=== PATIENT | male | born 1975 | race Two or more races ===

== ENCOUNTER 2016-08-02 23:23 | Emergency (ER) | payer MEDICAID, OTHER ==
[~2016-08-02] VITALS: Ht 160 cm; Wt 83.9 kg
[~2016-08-02 23:23] MED LIST: ATIVAN0.5 MG ORAL; IBUPROFEN600 MG ORAL; NAPROSYN500 M1 ORAL; NKM
[2016-08-02 23:40] VITALS: BP 145/83
[2016-08-03] MEDS ORDERED: Norco 5mg/325mg tab ORAL ONE
[2016-08-03] MEDS ORDERED: IBUPROFEN600 MG ORAL (00:37)
[2016-08-03] MEDS ORDERED: HYDROCODON-ACE1 EA15 ORAL (00:37)
--- NOTE | 2016-08-03 00:37 | Emergency Room Report ---
History of Present Illness General Chief Complaint: Lower Extremity Injury Source: Patient Present Illness HPI Is a 40-year-old male with no significant past medical history. He presents with chief complaint of left ankle pain. Was walking with his family when he stepped into a hole. He twists his ankle. Complaining of swelling to the area. Pain is 10 out of 10. Worse with bearing weight. This occurred 40 minutes prior to arrival. No head injury. Did not pass out. Allergies: Coded Allergies: No Known Allergies (Unverified , 09/17/13) Patient History Past Medical History: see triage record, old chart reviewed Past Surgical History: none Pertinent Family History: none Social History: Denies: smoking Immunizations: other Reviewed Nursing Documentation: PMH: Agreed, PSxH: Agreed Nursing Documentation-PMH Hx Cardiac Problems: Yes - hyperlipidimia Review of Systems Eye: Denies: blurred vision, eye pain ENT: Denies: ear pain, nose congestion, throat swelling Respiratory: Denies: cough, shortness of breath Cardiovascular: Denies: chest pain, palpitations Gastrointestinal: Denies: abdominal pain, diarrhea, nausea, vomiting Musculoskeletal: Reports: joint pain, joint swelling, Denies: back pain Skin: Denies: rash Neurological: Denies: headache, numbness Endocrine: Denies: increased thirst, increased urine Hematologic/Lymphatic: Denies: easy bruising All Other Systems: negative except mentioned in HPI Physical Exam Vital Signs Date Time Temp Pulse Resp B/P Pulse Ox O2 Delivery O2 Flow Rate FiO2 08/02/16 23:35 98.1 82 16 150/85 99 Room Air vitals with htn Sp02 EP Interpretation: reviewed, normal General Appearance: well appearing, no apparent distress, alert Head: normocephalic, atraumatic Eyes: bilateral eye EOMI, bilateral eye PERRL ENT: hearing grossly normal, normal pharynx Neck: full range of motion, supple, no meningismus Respiratory: chest non-tender, lungs clear, normal breath sounds Cardiovascular #1: regular rate, rhythm, no murmur Gastrointestinal: normal bowel sounds, non tender, no mass, no organomegaly, no bruit, non-distended Musculoskeletal: back normal, normal range of motion, other - left ankle with edema over lateral malleolus. no pain at base of 5th MT. NVI. ankle stable. Psychiatric: mood/affect normal Skin: warm/dry Procedures Splinting Splinting : Consent: Verbal Hand-Made Type: plaster Splint: poserior short Pre-Proc Neuro Vasc Exam: normal Post-Proc Neuro Vasc Exam: normal Patient Tolerated: Well Complications: None Medical Decision Making Diagnostic Impression: Primary Impression: Ankle sprain Qualified Codes: S93.412A - Sprain of calcaneofibular ligament of left ankle, initial encounter ER Course Patient present with ankle sprain. No fracture or dislocation. We'll discharge home. Other X-Ray Diagnostic Results Other X-Ray Diagnostic Results : X-Ray Ordered: xr left ankle Date: August 03, 2016 Time: 00:36 EP Interpretation: Yes Findings: no fractures, no dislocation, other - STS Number of Views: 3 Last Vital Signs Date Time Temp Pulse Resp B/P Pulse Ox O2 Delivery O2 Flow Rate FiO2 08/02/16 23:40 98.1 82 17 145/83 100 Room Air Status: improved Disposition: HOME, SELF-CARE Condition: Stable Scripts Ibuprofen* (MOTRIN*) 600 Mg Tablet 600 MG ORAL THREE TIMES A DAY, #30 TAB 0 Refills Prov: JESSEE SIMON M.D. 08/03/16 Hydrocodone/Acetaminophen 5-325* (HYDROCODONE/ACETAMINOPHEN 5-325*) 1 Each Tablet 1 TAB ORAL Q6H Y for For Pain, #15 TAB 0 Refills Prov: JESSEE SIMON M.D. 08/03/16 Patient Instructions: Ankle Sprain Additional Instructions: Follow up with your doctor in 7 days. Return if worse. JESSEE SIMON M.D. August 03, 2016 00:37
[2016-08-03 00:50] VITALS: BP 138/82
--- NOTE | 2016-08-04 08:34 | Diagnostic Imaging Report ---
Indications: Fall, left ankle injury and pain Technique: 3 views left ankle. Findings: Comparison: None Anterolateral soft tissues are swollen. No fracture, dislocation, joint space widening , medial soft tissue swelling, foreign body/gas, or other acute changes are identified. IMPRESSION: Consider ATFL sprain Otherwise no evidence of acute injury.
== END 2016-08-03 00:50 | disposition home or self-care (01) ==
LOC: EMR 08-03 00:22
DX: S93.492A Sprain of other ligament of left ankle, initial encounter (principal); X50.1XXA Overexertion from prolonged static or awkward postures, initial encounter; Y92.89 Other specified places as the place of occurrence of the external cause; E78.5 Hyperlipidemia, unspecified
CPT/HCPCS: 29515; 99284

== ENCOUNTER 2016-10-21 23:22 | Emergency (ER) | payer OTHER ==
[~2016-10-21] VITALS: Ht 160 cm; Wt 79.4 kg
[~2016-10-21 23:22] MED LIST changes: +HYDROCODON-ACE1 EA15 ORAL
[2016-10-21] MEDS ORDERED: NKM (23:34)
[2016-10-21 23:40] VITALS: BP 145/78
[2016-10-21 23:59] LABS: APPEARANCE,URINE CLEAR; KETONES,URINE NEGATIVE (NEGATIVE); LEUKOCYTE ESTERASE ,URINE NEGATIVE (NEGATIVE); NITRITE,URINE NEGATIVE (NEGATIVE); PH,URINE 7 (4.5-8.0); PROTEIN,URINE NEGATIVE (NEGATIVE); UROBILINOGEN,URINE NORMAL MG/DL (0.0-1.0)
[2016-10-22] MEDS ORDERED: Lidocaine 2% Visc 15ml soln ORAL ONE
[2016-10-22] MEDS ORDERED: Pantoprazole Inj IV ONE
[2016-10-22] MEDS ORDERED: Mylanta II UD 30ml ORAL ONE
[2016-10-22] MEDS ORDERED: Morphine Sulfate 4mg/ml Inj IVP ONE
[2016-10-22 00:25] LABS: BASOPHILS % (AUTO) 1.1 % (0.0-2.0); EOSINOPHILS % (AUTO) 3.9 % (0.0-3.0); LYMPHOCYTES % (AUTO) 42.4 % (20.0-45.0); MEAN CORPUSCULAR HEMOGLOBIN 31.3 PG (27.0-31.0); MEAN CORPUSCULAR HGB CONC 34.6 G/DL (32.0-36.0); MEAN CORPUSCULAR VOLUME 90 FL (80-99); MEAN PLATELET VOLUME 7.9 FL (6.5-10.1); MONOCYTES % (AUTO) 5.8 % (1.0-10.0); NEUTROPHILS % (AUTO) 46.8 % (45.0-75.0); PLATELET COUNT 224 K/UL (150-450); RED BLOOD COUNT 5.37 M/UL (4.70-6.10); WHITE BLOOD COUNT 10.2 K/UL (4.8-10.8)
--- NOTE | 2016-10-22 00:29 | Emergency Room Report ---
History of Present Illness General Chief Complaint: Abdominal Pain Source: Patient Present Illness HPI Patient presents with 4 days of epigastric pain is worse when he is lying down. He's been taking high doses of ibuprofen for a problem with his left heel. That started when he twisted his ankle. The pain is 10/10 constant in epigastric and radiates somewhat towards his chest. He's tried taking herbal medicine which hasn't helped. Burning and pressure. He states his stools have been black. He feels nauseated but hasn't vomited. There's been no fever. No chest pain, dyspnea, fevers, dysuria. Allergies: Coded Allergies: No Known Allergies (Unverified , 09/17/13) Patient History Past Medical History: see triage record Social History: Reports: smoking Social History Narrative , used to [place] [employer] [place] Nursing Documentation: PMH: Agreed, PSxH: Agreed Nursing Documentation-PMH Past Medical History: No History, Except For Review of Systems All Other Systems: negative except mentioned in HPI Physical Exam Vital Signs Date Time Temp Pulse Resp B/P Pulse Ox O2 Delivery O2 Flow Rate FiO2 10/21/16 23:28 97.7 75 16 145/78 96 Room Air Sp02 EP Interpretation: reviewed, normal General Appearance: well appearing, no apparent distress, GCS 15 Head: normocephalic Eyes: bilateral eye PERRL, bilateral eye normal inspection ENT: moist mucus membranes Neck: supple Respiratory: lungs clear, normal breath sounds Cardiovascular #1: regular rate, rhythm Cardiovascular #2: 2+ radial (R) Gastrointestinal: normal inspection, normal bowel sounds, no mass, non- distended, no guarding, no rebound, tenderness - epigastric Rectal: heme negative stool - brown Musculoskeletal: back normal, gait/station normal, normal range of motion, tender - heel L foot, ankle ligamnets stable Neurologic: alert, oriented x3, grossly normal Psychiatric: mood/affect normal Skin: normal inspection, warm/dry Medical Decision Making Diagnostic Impression: Primary Impression: Gastritis Qualified Codes: K29.00 - Acute gastritis without bleeding Additional Impression: Plantar fasciitis of left foot ER Course Patient presents with epigastric pain. He's been taking nonsteroidals. Differential includes gastritis, peptic ulcer disease, pancreatitis, GERD, acute coronary syndrome amongst others. Evaluation needs to be undertaken with labs, EKG. Due to the nature of the pain and his exam, xrays not indicated. The patient be treated with Pepcid, IV hydration and also analgesia. EKG is unremarkable. Lab is significant for normal H&H. The patient was still having significant pain and therefore Dilaudid was given. The patient had significant improvement. He requested an ultrasound. I explained that this would most likely not be helpful with diagnosis. The problem with his ankles appear to be plantar fasciitis. Discussed the need for different type of treatments and have to modify or he's been taking and the fact that he needs to followup with a bulk cooler installer. The patient is stable for outpatient observation and treatment. Laboratory Tests Test 10/21/16 23:40 10/21/16 23:50 Urine Color Pale yellow Urine Appearance Clear Urine pH 7 (4.5-8.0) Urine Specific [place] 1.005 (1.005-1.035) Urine Protein Negative (NEGATIVE) Urine Glucose (UA) Negative (NEGATIVE) Urine Ketones Negative (NEGATIVE) Urine Occult Blood Negative (NEGATIVE) Urine Nitrite Negative (NEGATIVE) Urine Bilirubin Negative (NEGATIVE) Urine Urobilinogen Normal MG/DL (0.0-1.0) Urine Leukocyte Esterase Negative (NEGATIVE) White Blood Count 10.2 K/UL (4.8-10.8) Red Blood Count 5.37 M/UL (4.70-6.10) Hemoglobin 16.8 G/DL (14.2-18.0) Hematocrit 48.5 % (42.0-52.0) Mean Corpuscular Volume 90 FL (80-99) Mean Corpuscular Hemoglobin 31.3 PG (27.0-31.0) H Mean Corpuscular Hemoglobin Concent 34.6 G/DL (32.0-36.0) Red Cell Distribution Width 11.0 % (11.6-14.8) L Platelet Count 224 K/UL (150-450) Mean Platelet Volume 7.9 FL (6.5-10.1) Neutrophils (%) (Auto) 46.8 % (45.0-75.0) Lymphocytes (%) (Auto) 42.4 % (20.0-45.0) Monocytes (%) (Auto) 5.8 % (1.0-10.0) Eosinophils (%) (Auto) 3.9 % (0.0-3.0) H Basophils (%) (Auto) 1.1 % (0.0-2.0) Sodium Level 141 mEQ/L (135-145) Potassium Level 3.6 mEQ/L (3.4-4.9) Chloride Level 102 mEQ/L (98-107) Carbon Dioxide Level 27 mEQ/L (20-30) Anion Gap 12 (5-15) Blood Urea Nitrogen 11 mg/dL (7-23) Creatinine 0.9 mg/dL (0.7-1.2) Estimate Glomerular Filtration Rate > 60 mL/min (>60) Glucose Level 91 mg/dL (74-106) Calcium Level 9.4 mg/dL (8.6-10.2) Total Bilirubin 0.7 mg/dL (0.0-1.2) Aspartate Amino Transferase (AST) 31 U/L (5-40) Alanine Aminotransferase (ALT) 31 U/L (3-41) Alkaline Phosphatase 49 U/L (40-129) Total Protein 7.5 g/dL (6.6-8.7) Albumin 4.5 g/dL (3.5-5.2) Globulin 3.0 g/dL Albumin/Globulin Ratio 1.5 (1.0-2.7) Lipase 30 U/L (< 60) EKG Diagnostic Results Rate: normal Rhythm: NSR ST Segments: no acute changes Rhythm Strip Diag. Results EP Interpretation: yes Rhythm: NSR, no PVC's, no ectopy Last Vital Signs Date Time Temp Pulse Resp B/P Pulse Ox O2 Delivery O2 Flow Rate FiO2 10/22/16 03:10 97.6 78 18 135/82 98 Room Air Status: improved Disposition: HOME, SELF-CARE Condition: Improved Scripts Ondansetron Odt* (ZOFRAN ODT*) 4 Mg Tab.rapdis 4 MG ORAL Q8HR Y for Nausea & Vomiting, #8 TAB 1 Refill Prov: Kalpesh Patterson M.D. 10/22/16 Tramadol Hcl* (ULTRAM*) 50 Mg Tablet 50 MG ORAL Q6H Y for For Pain, #16 TAB 0 Refills Prov: Kalpesh Patterson M.D. 10/22/16 Referrals: [facility],REFERRING (PCP) Kalpesh Patterson M.D. Oct 22, 2016 00:29
[2016-10-22 00:46] LABS: ALANINE AMINOTRANSFERASE 31 U/L (3-41); ALBUMIN/GLOBULIN RATIO 1.5 (1.0-2.7); ANION GAP 12 (5-15); ASPARTATE AMINO TRANSFERASE 31 U/L (5-40); CALCIUM 9.4 mg/dL (8.6-10.2); CARBON DIOXIDE 27 mEQ/L (20-30); CHLORIDE 102 mEQ/L (98-107); CREATININE 0.9 mg/dL (0.7-1.2); GLOMERULAR FILTRATION RATE > 60 mL/min (>60); HEMOLYSIS 6; LIPASE 30 U/L (< 60); POTASSIUM 3.6 mEQ/L (3.4-4.9); SODIUM 141 mEQ/L (135-145); TOTAL PROTEIN 7.5 g/dL (6.6-8.7)
[2016-10-22] MEDS ORDERED: HYDROmorphone 1mg/ml Carpuject IVP ONE (01:30)
[2016-10-22 01:40] VITALS: BP 127/77
[2016-10-22] MEDS ORDERED: ZOFRAN ODT4 MG ORAL (02:47)
[2016-10-22] MEDS ORDERED: TRAMADOL HCL50 MG ORAL (02:47)
[2016-10-22 03:00] VITALS: BP 135/82
[2016-10-22 03:10] VITALS: BP 135/82
== END 2016-10-22 03:10 | disposition home or self-care (01) ==
LOC: EMR 23:45
DX: K29.70 Gastritis, unspecified, without bleeding (principal); M72.2 Plantar fascial fibromatosis; F17.200 Nicotine dependence, unspecified, uncomplicated
CPT/HCPCS: 36415; 80053; 81003; 83690; 85025; 93005; 96374; 96375; 99284; C9113; J1170; J2270; J2405

== ENCOUNTER 2016-12-02 07:41 | Emergency (ER) | payer OTHER ==
[~2016-12-02] VITALS: Ht 160 cm; Wt 81.6 kg
[~2016-12-02 07:41] MED LIST changes: +TRAMADOL HCL50 MG ORAL; +ZOFRAN ODT4 MG ORAL
[2016-12-02 08:03] VITALS: BP 130/71
[2016-12-02] MEDS ORDERED: IBUPROFEN600 MG ORAL (08:28)
[2016-12-02] MEDS ORDERED: OFLOXACIN5 ML LEFT EAR (08:28)
[2016-12-02 08:38] VITALS: BP 130/71
--- NOTE | 2016-12-03 17:07 | Emergency Room Report ---
History of Present Illness General Chief Complaint: Earache Source: Patient Present Illness HPI 41-year-old male presents to ED complaining of left ear pain for the last 5 days. Pain is throbbing, 8 at 10, nonradiating. Patient states proximally one week ago he went to the beach and submerged his head in water. Denies fevers chills. Denies cough. Denies sore throat. No other aggravating relieving factors. Denies any other associated symptoms Allergies: Coded Allergies: No Known Allergies (Unverified , 09/17/13) Patient History Past Medical History: none Past Surgical History: none Pertinent Family History: none Social History: Denies: smoking, alcohol use, drug use Immunizations: UTD Reviewed Nursing Documentation: PMH: Agreed, PSxH: Agreed Nursing Documentation-PMH Past Medical History: No History, Except For Review of Systems All Other Systems: negative except mentioned in HPI Physical Exam Vital Signs Date Time Temp Pulse Resp B/P (MAP) Pulse Ox O2 Delivery O2 Flow Rate FiO2 12/02/16 08:03 98.1 74 16 130/71 99 Room Air Sp02 EP Interpretation: reviewed, normal General Appearance: no apparent distress, alert, GCS 15, non-toxic Head: normocephalic, atraumatic Eyes: bilateral eye normal inspection, bilateral eye PERRL ENT: hearing grossly normal, normal pharynx, no angioedema, normal voice, other - L ear canal erythematous. TTP Neck: normal inspection Respiratory: chest non-tender, lungs clear, normal breath sounds, speaking full sentences Cardiovascular #1: normal inspection Gastrointestinal: normal inspection Rectal: deferred Genitourinary: no CVA tenderness Musculoskeletal: normal inspection Neurologic: alert, oriented x3, responsive, motor strength/tone normal, sensory intact, speech normal Psychiatric: normal inspection Skin: normal inspection Lymphatic: normal inspection Medical Decision Making Diagnostic Impression: Primary Impression: Otitis externa Qualified Codes: H60.502 - Unspecified acute noninfective otitis externa, left ear ER Course Hospital Course 41-year-old M presents to ED with pain L ear. Differential diagnoses include: TM perforation, otitis externa, otitis media Clinical course Patient placed on stretcher. After initial history, physical exam reveals a male in no acute distress. Left TM unremarkable, erythematous swollen ear canal. Right ear canal and TM unremarkable consistent with otitis externa Diagnosis - otitis externa Stable and discharged to home with Rx ofloxacin otic. Followup with PMD. Return to ED if symptoms recur or worsen Last Vital Signs Date Time Temp Pulse Resp B/P (MAP) Pulse Ox O2 Delivery O2 Flow Rate FiO2 12/02/16 08:38 98.1 79 18 130/71 100 Room Air Status: improved Disposition: HOME, SELF-CARE Condition: Stable Scripts Ibuprofen* (MOTRIN*) 600 Mg Tablet 600 MG ORAL Q8H Y for For Pain, #30 TAB 0 Refills Prov: JOURDAN VELÁSQUEZ M.D. 12/02/16 Ofloxacin (OFLOXACIN) 5 Ml Drops 10 DROP LEFT EAR QID for 10 Days, #5 ML Prov: JOURDAN VELÁSQUEZ M.D. 12/02/16 Patient Instructions: Otitis Externa, Iqui-[id number] JOURDAN VELÁSQUEZ M.D. Dec 03, 2016 17:07
== END 2016-12-02 08:38 | disposition home or self-care (01) ==
LOC: EMR 08:21
DX: H60.502 Unspecified acute noninfective otitis externa, left ear (principal)
CPT/HCPCS: 99284

== ENCOUNTER 2016-12-22 06:00 | Inpatient (IN) | payer OTHER ==
[~2016-12-22] VITALS: Ht 160 cm; Wt 79.4 kg
[~2016-12-22 06:00] MED LIST changes: +OFLOXACIN5 ML LEFT EAR
[2016-12-22] MEDS ORDERED: Lidocaine 2% Visc 15ml soln ORAL ONE (06:15)
[2016-12-22] MEDS ORDERED: Mylanta II UD 30ml ORAL ONE (06:15)
[2016-12-22] MEDS ORDERED: Dicyclomine HCl 10mg/5ml oral soln ORAL ONE (06:15)
--- NOTE | 2016-12-22 06:20 | Emergency Room Report ---
History of Present Illness General Chief Complaint: Abdominal Pain Source: Patient (Sacha Chawla M.D.) Present Illness HPI 41-year-old male, history of gastritis, p/w abdominal pain for one week. Patient has been taking a lot of Motrin for the last 2 weeks. Patient points to epigastrium, burning in nature, intermittent. No relieving or exacerbating factors. Severity is 5/10. About 3 episodes of nbnb vomiting, denies diarrhea Denies fever, chills. No hx of endoscopies/colonoscopies. (Sacha Chawla M.D.) Allergies: Coded Allergies: No Known Allergies (Unverified , 09/17/13) Patient History Past Medical History: see triage record Past Surgical History: none Pertinent Family History: none Reviewed Nursing Documentation: PMH: Agreed, PSxH: Agreed (Sacha Chawla M.D. ) Review of Systems All Other Systems: negative except mentioned in HPI (Sacha Chawla M.D.) Physical Exam Vital Signs Date Time Temp Pulse Resp B/P (MAP) Pulse Ox O2 Delivery O2 Flow Rate FiO2 12/22/16 06:04 98.1 74 18 130/76 98 Room Air Sp02 EP Interpretation: reviewed, normal General Appearance: alert, GCS 15, non-toxic, mild distress Head: normocephalic, atraumatic Eyes: bilateral eye normal inspection, bilateral eye PERRL, bilateral eye EOMI ENT: normal ENT inspection, normal pharynx, normal voice, moist mucus membranes Neck: normal inspection, full range of motion, supple Respiratory: normal inspection, lungs clear, normal breath sounds, no respiratory distress, no retraction, no wheezing, speaking full sentences, chest symmetrical Cardiovascular #1: normal inspection, regular rate, rhythm, no edema, normal capillary refill Cardiovascular #2: 2+ radial (R), 2+ radial (L) Gastrointestinal: non-distended, no guarding, other - Epigastric tenderness, Garcia sign negative, no guarding no rebound, nontender all of the quadrants Genitourinary: no CVA tenderness Musculoskeletal: normal inspection, back normal, normal range of motion, non- tender Neurologic: normal inspection, alert, oriented x3, responsive, motor strength/ tone normal, sensory intact, normal gait, speech normal Psychiatric: normal inspection, judgement/insight normal, memory normal Skin: normal inspection, normal color, no rash, warm/dry, well hydrated, normal turgor (Retinquin,Sacha M.DBarron) Medical Decision Making Diagnostic Impression: Primary Impression: Gastritis Additional Impression: Intractable pain ER Course 41-year-old male history of chronic ibuprofen use with abdominal pain for one week Differential Diagnosis: Gastritis, gastroenteritis, cholecystitis, appendicitis, diverticulitis, SBO, mesenteric ischemia, cardiac, UTI/pyelo At this time abdomen is soft nontender, not likely to have acute intra- abdominal surgical pathology, will hold CT for now. History of physical most consistent with gastritis/peptic ulcer disease given patient is chronic ibuprofen user Plan: Basic labs, ua, ekg Pepcid, maalox, pain control, IVF Signed out patient to Dr Crowder -Pending labs -Pending symptom control -Patient is well-appearing, anticipate discharge to home with GI followup Please note that this Emergency Department Report was dictated using Wordsterrubber curer technology software, occasionally this can lead to erroneous entry secondary to interpretation by the dictation equipment Laboratory Tests Test 12/22/16 06:02 12/22/16 06:45 Urine Color Pale yellow Urine Appearance Clear Urine pH 8 (4.5-8.0) Urine Specific [place] 1.010 (1.005-1.035) Urine Protein Negative (NEGATIVE) Urine Glucose (UA) Negative (NEGATIVE) Urine Ketones Negative (NEGATIVE) Urine Occult Blood Negative (NEGATIVE) Urine Nitrite Negative (NEGATIVE) Urine Bilirubin Negative (NEGATIVE) Urine Urobilinogen Normal MG/DL (0.0-1.0) Urine Leukocyte Esterase 1+ (NEGATIVE) H Urine RBC 0-2 /HPF (0 - 0) H Urine WBC 2-4 /HPF (0 - 0) Urine Squamous Epithelial Cells Occasional /LPF Urine Amorphous Sediment Few /LPF (NONE) H Urine Bacteria Occasional /HPF (NONE) White Blood Count 7.3 K/UL (4.8-10.8) Red Blood Count 4.70 M/UL (4.70-6.10) Hemoglobin 14.8 G/DL (14.2-18.0) Hematocrit 43.0 % (42.0-52.0) Mean Corpuscular Volume 91 FL (80-99) Mean Corpuscular Hemoglobin 31.5 PG (27.0-31.0) H Mean Corpuscular Hemoglobin Concent 34.4 G/DL (32.0-36.0) Red Cell Distribution Width 11.4 % (11.6-14.8) L Platelet Count 207 K/UL (150-450) Mean Platelet Volume 8.6 FL (6.5-10.1) Neutrophils (%) (Auto) 37.0 % (45.0-75.0) L Lymphocytes (%) (Auto) 49.4 % (20.0-45.0) H Monocytes (%) (Auto) 6.9 % (1.0-10.0) Eosinophils (%) (Auto) 5.5 % (0.0-3.0) H Basophils (%) (Auto) 1.2 % (0.0-2.0) Sodium Level 137 MMOL/L (136-145) Potassium Level 3.9 MMOL/L (3.5-5.1) Chloride Level 103 MMOL/L (98-107) Carbon Dioxide Level 26 MMOL/L (21-32) Anion Gap 8 (5-15) Blood Urea Nitrogen 17 mg/dL (7-18) Creatinine 0.9 MG/DL (0.55-1.30) Estimate Glomerular Filtration Rate > 60 mL/min (>60) Glucose Level 100 MG/DL (74-106) Calcium Level 8.3 MG/DL (8.5-10.1) L Total Bilirubin 0.6 MG/DL (0.2-1.0) Aspartate Amino Transferase (AST) 24 U/L (15-37) Alanine Aminotransferase (ALT) 40 U/L (12-78) Alkaline Phosphatase 50 U/L (46-116) Troponin I 0.017 ng/mL (0.000-0.056) Total Protein 6.7 G/DL (6.4-8.2) Albumin 3.3 G/DL (3.4-5.0) L Globulin 3.4 g/dL Albumin/Globulin Ratio 0.9 (1.0-2.7) L Lipase 131 U/L (73-393) (Sacha Chawla M.D.) ER Course This patient was signed out to me from Dr. Chawla. He was pending laboratory findings to include a CBC, CMP, lipase and troponin a. All of these are unremarkable. He has recurrent history of gastritis and epigastric pain. He does take significant amounts of ibuprofen. It likely has peptic ulcer disease. He was treated with Pepcid, Bentyl, Zofran and a GI cocktail without relief. The patient continued to have intractable pain despite treatment here in the emergency department. He was given IV morphine. The patient has uncontrolled pain and does not have controlled his symptoms, therefore, I will admit this patient for further pain control and assessment by a maintenance of way foreman. I did order a gallbladder ultrasound which is pending completion at the time of this dictation. The patient also underwent right upper quadrant ultrasound and there is no evidence of gallbladder disease or gallstones. The patient's insurance company requested his transfer to [facility]. The patient is stable for transfer and was transferred at this request.Add note: The patient's insurance company was unable to arrange transfer to the accepting hospital physician in a timely manner. The patient was admitted to the medical surgical floor. Laboratory Tests Test 12/22/16 06:02 12/22/16 06:45 Urine Color Pale yellow Urine Appearance Clear Urine pH 8 (4.5-8.0) Urine Specific [place] 1.010 (1.005-1.035) Urine Protein Negative (NEGATIVE) Urine Glucose (UA) Negative (NEGATIVE) Urine Ketones Negative (NEGATIVE) Urine Occult Blood Negative (NEGATIVE) Urine Nitrite Negative (NEGATIVE) Urine Bilirubin Negative (NEGATIVE) Urine Urobilinogen Normal MG/DL (0.0-1.0) Urine Leukocyte Esterase 1+ (NEGATIVE) H Urine RBC 0-2 /HPF (0 - 0) H Urine WBC 2-4 /HPF (0 - 0) Urine Squamous Epithelial Cells Occasional /LPF Urine Amorphous Sediment Few /LPF (NONE) H Urine Bacteria Occasional /HPF (NONE) White Blood Count 7.3 K/UL (4.8-10.8) Red Blood Count 4.70 M/UL (4.70-6.10) Hemoglobin 14.8 G/DL (14.2-18.0) Hematocrit 43.0 % (42.0-52.0) Mean Corpuscular Volume 91 FL (80-99) Mean Corpuscular Hemoglobin 31.5 PG (27.0-31.0) H Mean Corpuscular Hemoglobin Concent 34.4 G/DL (32.0-36.0) Red Cell Distribution Width 11.4 % (11.6-14.8) L Platelet Count 207 K/UL (150-450) Mean Platelet Volume 8.6 FL (6.5-10.1) Neutrophils (%) (Auto) 37.0 % (45.0-75.0) L Lymphocytes (%) (Auto) 49.4 % (20.0-45.0) H Monocytes (%) (Auto) 6.9 % (1.0-10.0) Eosinophils (%) (Auto) 5.5 % (0.0-3.0) H Basophils (%) (Auto) 1.2 % (0.0-2.0) Sodium Level 137 MMOL/L (136-145) Potassium Level 3.9 MMOL/L (3.5-5.1) Chloride Level 103 MMOL/L (98-107) Carbon Dioxide Level 26 MMOL/L (21-32) Anion Gap 8 (5-15) Blood Urea Nitrogen 17 mg/dL (7-18) Creatinine 0.9 MG/DL (0.55-1.30) Estimate Glomerular Filtration Rate > 60 mL/min (>60) Glucose Level 100 MG/DL (74-106) Calcium Level 8.3 MG/DL (8.5-10.1) L Total Bilirubin 0.6 MG/DL (0.2-1.0) Aspartate Amino Transferase (AST) 24 U/L (15-37) Alanine Aminotransferase (ALT) 40 U/L (12-78) Alkaline Phosphatase 50 U/L (46-116) Troponin I 0.017 ng/mL (0.000-0.056) Total Protein 6.7 G/DL (6.4-8.2) Albumin 3.3 G/DL (3.4-5.0) L Globulin 3.4 g/dL Albumin/Globulin Ratio 0.9 (1.0-2.7) L Lipase 131 U/L (73-393) (BRIDGETT JOHNSON D.OBarron) EKG Diagnostic Results Rate: bradycardiac Rhythm: NSR ST Segments: no acute changes ASA given to the pt in ED: No (Sacha Chawla M.D.) Last Vital Signs Date Time Temp Pulse Resp B/P (MAP) Pulse Ox O2 Delivery O2 Flow Rate FiO2 12/22/16 06:04 98.1 74 18 130/76 98 Room Air (Sacha Chawla M.D.) Disposition: ADMITTED INPATIENT Condition: Stable Signed Out To: Dr Crowder (Sacha Chawla M.D.) Sacha Chawla M.D. Dec 22, 2016 06:20 BRIDGETT JOHNSON D.O. Dec 22, 2016 09:03
[2016-12-22 06:54] LABS: APPEARANCE,URINE CLEAR; KETONES,URINE NEGATIVE (NEGATIVE); LEUKOCYTE ESTERASE ,URINE 1+ (NEGATIVE); NITRITE,URINE NEGATIVE (NEGATIVE); PH,URINE 8 (4.5-8.0); PROTEIN,URINE NEGATIVE (NEGATIVE); UROBILINOGEN,URINE NORMAL MG/DL (0.0-1.0)
[2016-12-22 07:02] LABS: BASOPHILS % (AUTO) 1.2 % (0.0-2.0); EOSINOPHILS % (AUTO) 5.5 % (0.0-3.0); LYMPHOCYTES % (AUTO) 49.4 % (20.0-45.0); MEAN CORPUSCULAR HEMOGLOBIN 31.5 PG (27.0-31.0); MEAN CORPUSCULAR HGB CONC 34.4 G/DL (32.0-36.0); MEAN CORPUSCULAR VOLUME 91 FL (80-99); MEAN PLATELET VOLUME 8.6 FL (6.5-10.1); MONOCYTES % (AUTO) 6.9 % (1.0-10.0); PLATELET COUNT 207 K/UL (150-450); RED CELL DISTRIBUTION WIDTH 11.4 % (11.6-14.8); WHITE BLOOD COUNT 7.3 K/UL (4.8-10.8)
[2016-12-22 07:03] LABS: AMORPHOUS SEDIMENT,UR FEW /LPF; BACTERIA,URINE OCCASIONAL /HPF; RBC,URINE 0-2 /HPF (0 - 0); SQUAMOUS EPITHELIAL CELL,UR OCCASIONAL /LPF (NONE/OCC)
[2016-12-22 07:05] VITALS: BP 120/69
[2016-12-22 07:56] LABS: ALANINE AMINOTRANSFERASE 40 U/L (12-78); ALBUMIN/GLOBULIN RATIO 0.9 (1.0-2.7); ANION GAP 8 (5-15); ASPARTATE AMINO TRANSFERASE 24 U/L (15-37); CALCIUM 8.3 MG/DL (8.5-10.1); CARBON DIOXIDE 26 MMOL/L (21-32); CHLORIDE 103 MMOL/L (98-107); CREATININE 0.9 MG/DL (0.55-1.30); GLOMERULAR FILTRATION RATE > 60 mL/min (>60); LIPASE 131 U/L (73-393); POTASSIUM 3.9 MMOL/L (3.5-5.1); SODIUM 137 MMOL/L (136-145); TOTAL PROTEIN 6.7 G/DL (6.4-8.2)
[2016-12-22 08:00] VITALS: BP 120/79
[2016-12-22] MEDS ORDERED: NKM (08:37)
[2016-12-22] MEDS ORDERED: Morphine Sulfate 4mg/ml Inj IVP ONE (09:00)
[2016-12-22 10:18] VITALS: BP 127/70
[2016-12-22 12:00] VITALS: BP 123/74
--- NOTE | 2016-12-22 12:45 | Diagnostic Imaging Report ---
Indication:Abdominal pain Technique: Grayscale and duplex Doppler imaging of the abdomen performed. Comparison: None Findings: The liver, demonstrated part of the pancreas, gallbladder, aorta and IVC, both kidneys, spleen appear unremarkable. There is no biliary ductal dilatation identified. Doppler evaluation of the main portal vein shows patency. There is no ascites. No hydronephrosis seen. CBD is 3.4 mm in diameter. Impression: Negative abdominal ultrasound.
[2016-12-22 13:59] VITALS: BP 129/76
--- NOTE | 2016-12-23 08:07 | Cardiology Report ---
APPROVED REPORT EKG Measurement Heart [id number] CT [id number] Sinus bradycardia Otherwise normal ECG
--- NOTE | 2016-12-23 15:08 | Discharge Summary ---
Discharge Summary Hospital Course Date of Admission Dec 22, 2016 at 12:05 Date of Discharge Dec 22, 2016 at 15:30 Admitting Diagnosis GASTRITIS,UNCONTROLLED PAIN HPI Pan Garcia is a 41 year old male who was admitted on Dec 22, 2016 at 12:05 for Gastritis,Uncontrolled Ain Hospital Course dc summary #[id number] Discharge Condition Upon Discharge: stable Discharge Disposition Patient was transferred to [facility] ( [facility]) per insurance- capitated hospital Discharge Diagnoses: Discharge Instructions Discharge Instructions Special Instructions I have been assigned to complete a D/C Summary on this account. I was not involved in the patient management Dianne Herr NP ([place]) Dec 23, 2016 15:08
--- NOTE | 2016-12-24 10:45 | Discharge Summary 2 SIG ---
DATE OF ADMISSION: 12/22/2016 DATE OF DISCHARGE: 12/22/2016 REASON FOR ADMISSION: 41-year-old male with history of high cholesterol and gastritis, presented with abdominal pain for one week. The patient reported taking lots of Motrin for the last two weeks. The patient reported epigastric burning, intermittent pain, grading pain severity 5/10 on a scale 1 to 10. He reported three episodes of nonbloody, nonbilious vomiting, but no diarrhea. He denied fever and chills. There was no history of endoscopy or colonoscopy. He denied daily use of alcohol or smoking. On examination, abdomen appeared to be benign and nontender. No rigidity. No rebound. No symptoms to suggest acute intra-abdominal surgical pathology. Therefore, CT of the abdomen was on hold at that time. History and Physical were most consistent with gastritis/peptic ulcer disease, given the fact, that the patient was a chronic ibuprofen user. The patient was treated with Pepcid, Bentyl, and Zofran without much relief. The patient continued to have intractable pain despite treatment in the emergency department. He was given IV morphine and was admitted for further management. The patient underwent right upper quadrant ultrasound. There was no evidence of gallbladder disease or gallstones. Insurance requested transfer the patient to [facility] i.e. [facility]. Meantime, the patient was admitted on the floor, awaiting for bed availability. ADMITTING DIAGNOSES: 1. Gastritis/peptic ulcer disease. 2. Intractable abdominal pain. 3. Chronic ibuprofen user. HOSPITAL STAY: The patient was admitted. The patient was NPO. The patient was on the IV fluid. The patient was started on PPI and Maalox as needed. Pain management was addressed. Antiemetic provided as needed. Later during the day, bed became available for transfer to [facility] as a [facility]. The patient was stable for transfer. FINAL DIAGNOSES: 1. Gastritis/peptic ulcer disease. 2. Intractable abdominal pain. 3. Chronic ibuprofen user. DISCHARGE MEDICATIONS: See medication reconciliation list. List of medication was sent to the admitting facility. DISCHARGE INSTRUCTIONS: The patient was transferred to [facility]. FOLLOWUP: Follow up with medical doctor at the hospital. Joie Toledo M.D. I have been assigned to dictate discharge summary on this account and I was not involved in the patient's management. Dianne Herr (Vanchtein) NBarronPBarron DR: RENNY JOB#: [id number] CC: DAVID
== END 2016-12-22 15:30 | disposition short-term general hospital (02) | DRG 241 ==
LOC: EMR 06:26 → 4E 12:05 → EDBEDREQ 13:09
DX: K29.60 Other gastritis without bleeding (principal); K27.9 Peptic ulcer, site unspecified, unspecified as acute or chronic, without hemorrhage or perforation; R10.9 Unspecified abdominal pain; Z79.1 Long term (current) use of non-steroidal anti-inflammatories (NSAID)
CPT/HCPCS: 36415; 76700; 80053; 81003; 83690; 84484; 85025; 93005; 99285; J2405

== ENCOUNTER 2017-01-27 17:08 | Emergency (ER) | payer OTHER ==
[~2017-01-27] VITALS: Ht 167.6 cm; Wt 77.1 kg
[2017-01-27 17:18] VITALS: BP 118/61
[2017-01-27] MEDS ORDERED: Tetanus/Diptheria/Pertussis Vaccine 0.5ml Syr IM ONE (17:30)
--- NOTE | 2017-01-27 17:49 | Emergency Room Report ---
History of Present Illness General Chief Complaint: Laceration Present Illness HPI 41 YO Male Presents to the ED c/o localized laceration to Right wrist, sustained from reaching up into the attic moving things. 5/10 in severity burning pain. pt. does not know what exactly cut him. does not know when his last tetanus was. denies SI/HI. pt. denies taking blood thinning medications. Denies numbness tingling or loss of sensation or gross motor movements of the extremities, incontinence of bowel or bladder. Denies CP, Palpitations, LOC, AMS , dizziness, Changes in Vision, Sensation, paresthesias, or a sudden severe headache. Allergies: Coded Allergies: No Known Allergies (Unverified , 09/17/13) Patient History Past Medical History: see triage record Past Surgical History: none Pertinent Family History: none Reviewed Nursing Documentation: PMH: Agreed, PSxH: Agreed Review of Systems All Other Systems: negative except mentioned in HPI Physical Exam Vital Signs Date Time Temp Pulse Resp B/P (MAP) Pulse Ox O2 Delivery O2 Flow Rate FiO2 01/27/17 17:12 98.2 88 20 118/61 99 Room Air Sp02 EP Interpretation: reviewed, normal General Appearance: no apparent distress, alert, GCS 15, non-toxic Head: normocephalic, atraumatic Eyes: bilateral eye normal inspection, bilateral eye PERRL ENT: hearing grossly normal, normal voice Neck: full range of motion Respiratory: lungs clear, normal breath sounds, speaking full sentences Cardiovascular #1: regular rate, rhythm, normal capillary refill Musculoskeletal: back normal, gait/station normal, normal range of motion Neurologic: alert, oriented x3, responsive, motor strength/tone normal, sensory intact, speech normal Psychiatric: judgement/insight normal, memory normal, mood/affect normal, no suicidal/homicidal ideation Skin: normal color, no rash, warm/dry, well hydrated, laceration - 4 cm linear and superficial laceration to the volar right wrist, not bleeding at this time. no obivous FB. Procedures Laceration/Wound Repair Laceration/Wound Repair : Consent: Verbal Wound Location: upper extremity - right volar wrist Wound's Depth, Shape: superficial, linear Wound Length (cm): 4 Wound Explored: clean Irrigated w/ Saline (ccs): 500 Wound Repaired With: Steri-strips, Dermabond Layer Closure?: No Sterile Dressing Applied?: Yes Splint Applied?: Yes - right pre-fabricated splint. Type of Splint Applied: prefabricated wrist splint Sling Applied?: No Patient Tolerated: Well Complications: None Medical Decision Making PA Attestation Dr. Chawla is my supervising Physician whom patient management has been discussed with. Diagnostic Impression: Primary Impression: Laceration ER Course 41 YO Male Presents to the ED c/o localized laceration to Right wrist, sustained from reaching up into the attic moving things. 5/10 in severity burning pain. pt. does not know what exactly cut him. does not know when his last tetanus was. denies SI/HI. pt. denies taking blood thinning medications. Denies numbness tingling or loss of sensation or gross motor movements of the extremities, incontinence of bowel or bladder. Denies CP, Palpitations, LOC, AMS , dizziness, Changes in Vision, Sensation, paresthesias, or a sudden severe headache. Ddx considered but are not limited to laceration, tendon injury, cellulitis, amputation Vital signs: are WNL, pt. is afebrile H&PE are most consistent with: Right wrist laceration approx 4cm in length. ORDERS: none required at this time, the diagnosis is clinical ED INTERVENTIONS: -Tetanus vaccine was administered as pt. vaccination status was unknown. - The wound was copiously irrigated with normal saline, and explored for foreign body for which no FB was found. - The wound was approximated and closed using Steri-Strips and dermabond. - Right Wrist Splint applied by software test technician. Pt. remains neurovascularly intact. Discussed with patient: That we make every effort to approximate the laceration as best as we can so that scarring will be as cosmetically pleasing as possible with our limited cosmetic skill set in the Emergency dept. Regardless of our best efforts there will be scarring after laceration repair. The extent of scarring is unknown at this time. DISCHARGE: At this time pt. is stable for d/c to home. Will provide printed patient care instructions, and any necessary prescriptions. Care plan and follow up instructions have been discussed with the patient prior to discharge. Last Vital Signs Date Time Temp Pulse Resp B/P (MAP) Pulse Ox O2 Delivery O2 Flow Rate FiO2 01/27/17 17:12 98.2 88 20 118/61 99 Room Air Disposition: HOME, SELF-CARE Condition: Stable Scripts Bacitracin/Polymyxin B Sulfate (BACITRACIN-POLYMYXIN OINTMENT) 28.35 Gm Oint...g. 1 APPLIC TP BID, #28.3 GM Prov: Love Osman 01/27/17 Cephalexin* (KEFLEX*) 500 Mg Capsule 500 MG ORAL EVERY 12 HOURS for 7 Days, #14 CAP 0 Refills Prov: Love Osman 01/27/17 Referrals: [facility],REFERRING (PCP) Patient Instructions: Nonsutured Laceration Care Additional Instructions: Take medications as directed. KEEP CLEAN AND DRY UNTIL AFTER STERI-STRIPS NATURALLY FALL OFF, THEN BEGIN APPLYING ANTIBIOTIC OINTMENT. Follow up with a Primary Care Provider in 3-5 days, even if your symptoms have resolved. --Please review list of primary care clinics, if you do not already have a primary care provider Return sooner to ED if new symptoms occur, or current symptoms become worse. - Please note that this Emergency Department Report was dictated using [employer] technology software, occasionally this can lead to erroneous entry secondary to interpretation by the dictation equipment. Love Osman Jan 27, 2017 17:49
[2017-01-27] MEDS ORDERED: CEPHALEXIN500 MG ORAL (17:50)
[2017-01-27] MEDS ORDERED: BACITRACIN-P28.35 GM TP (17:50)
[2017-01-27 18:06] VITALS: BP 118/61
== END 2017-01-27 18:31 | disposition home or self-care (01) ==
LOC: EMR 17:30
DX: S61.511A Laceration without foreign body of right wrist, initial encounter (principal); Z23 Encounter for immunization; W45.8XXA Other foreign body or object entering through skin, initial encounter; Y93.9 Activity, unspecified; Y92.9 Unspecified place or not applicable
CPT/HCPCS: 12002; 90471; 90715; 99283; Z7502

== ENCOUNTER 2017-02-22 18:30 | Emergency (ER) | payer OTHER ==
[~2017-02-22] VITALS: Ht 162.6 cm; Wt 83.9 kg
[~2017-02-22 18:30] MED LIST changes: +BACITRACIN-P28.35 GM TP; +CEPHALEXIN500 MG ORAL
[2017-02-22 18:44] VITALS: BP 132/75
--- NOTE | 2017-02-22 19:42 | Emergency Room Report ---
History of Present Illness General Chief Complaint: Earache Source: Patient (Love Osman) Present Illness HPI 41-year-old male presents to the emergency department complaining of 8/10 in severity right-sided ear pain progressive x3 days after placing piece of garlic into his ear canal. Patient states that 3 days ago he was having some bilateral ear discomfort and he placed a garlic into his ear canals as a homeopathic remedy. Patient states that he was unable to remove the piece of garlic from the right year and he attempted to remove it with a Q-tip which accidentally pushed the garlic clove prior into his ear canal. Patient denies discharge from the ears or trauma other than after attempting to remove piece of garlic. Denies fevers or chills. Denies neck pain, stiffness, headache. Patient reports muffled hearing out of the right ear. Denies CP, Palpitations, LOC, AMS, dizziness, Changes in Vision, Sensation, paresthesias, or a sudden severe headache. (Love Osman) Allergies: Coded Allergies: No Known Allergies (Unverified , 09/17/13) Patient History Past Medical History: see triage record Past Surgical History: none Pertinent Family History: none Reviewed Nursing Documentation: PMH: Agreed, PSxH: Agreed (Love Osman) Review of Systems All Other Systems: negative except mentioned in HPI (Love Osman) Physical Exam Vital Signs Date Time Temp Pulse Resp B/P (MAP) Pulse Ox O2 Delivery O2 Flow Rate FiO2 02/22/17 18:34 97.7 73 16 132/75 97 Room Air Sp02 EP Interpretation: reviewed, normal General Appearance: no apparent distress, alert, GCS 15, non-toxic Head: normocephalic, atraumatic Eyes: bilateral eye normal inspection, bilateral eye PERRL ENT: hearing grossly normal - bilaterally, normal voice, other - obvious Fb in the right ear. no evidence of trauma to the external canal, tragal tenderness, unable to visualize the TM. the left ear canal in WNL other than small amount of sand in the canal on exam. Neck: full range of motion, no meningismus Respiratory: lungs clear, normal breath sounds, speaking full sentences Cardiovascular #1: regular rate, rhythm Rectal: deferred Musculoskeletal: back normal, gait/station normal, normal range of motion Neurologic: alert, oriented x3, responsive, motor strength/tone normal, sensory intact, speech normal Skin: normal color, no rash, warm/dry, well hydrated Lymphatic: no adenopathy (Love Osman) Procedures Additional Procedure Procedure Narrative I attempted to remove the garlic with alligator forceps. Patient was moving with minimal attempts to remove. Unable to remove FB. (Kalpesh Patterson M.D.) Medical Decision Making PA Attestation Dr. Patterson is my supervising Physician whom patient management has been discussed with. (Love Osman) Diagnostic Impression: Primary Impression: Ear foreign body Qualified Codes: T16.1XXA - Foreign body in right ear, initial encounter ER Course 41-year-old male presents to the emergency department complaining of 8/10 in severity right-sided ear pain progressive x3 days after placing piece of garlic into his ear canal. Patient states that 3 days ago he was having some bilateral ear discomfort and he placed a garlic into his ear canals as a homeopathic remedy. Patient states that he was unable to remove the piece of garlic from the right year and he attempted to remove it with a Q-tip which accidentally pushed the garlic clove prior into his ear canal. Patient denies discharge from the ears or trauma other than after attempting to remove piece of garlic. Denies fevers or chills. Denies neck pain, stiffness, headache. Patient reports muffled hearing out of the right ear. Denies CP, Palpitations, LOC, AMS, dizziness, Changes in Vision, Sensation, paresthesias, or a sudden severe headache. Ddx considered but are not limited to OM, OE, mastoiditis, TM perforation, FB Vital signs: are WNL, pt. is afebrile H&PE are most consistent with foreign body of the right ear ORDERS: none required at this time, the diagnosis is clinical -OTOSCOPY: obvious Fb in the right ear. no evidence of trauma to the external canal, tragal tenderness, unable to visualize the TM. the left ear canal in WNL other than small amount of sand in the canal on exam. ED INTERVENTIONS: -Tylenol #3 PO -Verbal consent was obtained from pt. for manual removal attempt of fb with alligator forceps. -localized anesthesia with applying 1% lidocaine plain manohar'n into the canal. two attempts to using alligator forceps was made to remove foreign body and was unsuccessful. DISCHARGE: At this time pt. is stable for d/c to home with Oral Abx, and instructions to see ENT specialist for removal as soon as possible. Will provide printed patient care instructions, and any necessary prescriptions. Care plan and follow up instructions have been discussed with the patient prior to discharge. D/w followup with ENT specialist for removal. (Love Osman) ER Course Discussed care plan and agree. (Kalpesh Patterson M.D.) Last Vital Signs Date Time Temp Pulse Resp B/P (MAP) Pulse Ox O2 Delivery O2 Flow Rate FiO2 02/22/17 18:44 97.7 69 16 132/75 97 Room Air (Love Osman) Status: unchanged (Kalpesh Patterson M.D.) Disposition: HOME, SELF-CARE Condition: Stable Scripts Ciprofloxacin* (CIPRO*) 500 Mg Tablet 500 MG PO BID for 7 Days, #14 TAB Prov: Love Osman 02/22/17 Acetaminophen* (TYLENOL EXTRA STRENGTH*) 500 Mg Tablet 500 MG ORAL Q6H Y for Mild Pain/Temp > 100.5, #20 TAB 0 Refills Prov: Love Osman 02/22/17 Referrals: [facility],REFERRING (PCP) Patient Instructions: Ear Foreign Body Additional Instructions: Take medications as directed. Follow up with an ENT SPECIALIST within 3-5 days, even if your symptoms have resolved. for REMOVAL OF GARLIC FROM EAR. --Please review list of primary care clinics, if you do not already have a primary care provider Return sooner to ED if new symptoms occur, or current symptoms become worse. - Please note that this Emergency Department Report was dictated using [employer] operator technology software, occasionally this can lead to erroneous entry secondary to interpretation by the dictation equipment. Love Osman Feb 22, 2017 19:42 Kalpesh Patterson M.D. Feb 23, 2017 23:22
[2017-02-22] MEDS ORDERED: CORTISPORIN EAR10 ML RIGHT EAR (19:43)
[2017-02-22] MEDS ORDERED: TYLENOL EXTRA500 MG ORAL (19:43)
[2017-02-22] MEDS ORDERED: Tylenol #3 tab (300mg/30mg) ORAL ONE (19:45)
[2017-02-22] MEDS ORDERED: CIPRO500 MG PO (20:01)
[2017-02-22 20:10] VITALS: BP 132/75
== END 2017-02-22 20:09 | disposition home or self-care (01) ==
LOC: EMR 19:15
DX: T16.1XXA Foreign body in right ear, initial encounter (principal); X58.XXXA Exposure to other specified factors, initial encounter; Y92.9 Unspecified place or not applicable
CPT/HCPCS: 69200; 99283; Z7502

== ENCOUNTER 2017-12-13 01:16 | Emergency (ER) | payer OTHER ==
[~2017-12-13] VITALS: Ht 165.1 cm; Wt 79.4 kg
[~2017-12-13 01:16] MED LIST changes: +ALBUTEROL SULF8.5 GM INH; +CIPRO500 MG PO; +CORTISPORIN EAR10 ML RIGHT EAR; +PSEUDOEPHEDRINE60 MG PO; +TYLENOL EXTRA500 MG ORAL
[2017-12-13 01:22] VITALS: BP 136/80
[2017-12-13 01:32] VITALS: BP 134/75
--- NOTE | 2017-12-13 01:42 | Emergency Room Report ---
History of Present Illness General Chief Complaint: Abdominal Pain Source: Patient Present Illness HPI This is a 42-year-old male who has a history of gastritis and presents with chief complaint of epigastric pain. He said this has been going for years. He said pain is burning in sensation. Nothing made it better. Nothing made it worse. He's been to numerous hospitals for this. He recently left [facility]. He had blood work done and said they gave her medicine is not helping. He denies any fever or chills. Denies any nausea vomiting. He said that he seen a specialist already. Allergies: Coded Allergies: No Known Allergies (Unverified , 09/17/13) Patient History Past Medical History: see triage record, old chart reviewed Past Surgical History: none Pertinent Family History: none Social History: Denies: smoking Immunizations: other Reviewed Nursing Documentation: PMH: Agreed; PSxH: Agreed Nursing Documentation-PMH Past Medical History: No History, Except For Review of Systems Eye: Denies: eye pain, blurred vision ENT: Denies: ear pain, nose congestion, throat swelling Respiratory: Denies: cough, shortness of breath Cardiovascular: Denies: chest pain, palpitations Gastrointestinal: Reports: abdominal pain; Denies: diarrhea, nausea, vomiting Musculoskeletal: Denies: back pain, joint pain Skin: Denies: rash Neurological: Denies: headache, numbness Endocrine: Denies: increased thirst, increased urine Hematologic/Lymphatic: Denies: easy bruising All Other Systems: negative except mentioned in HPI Physical Exam Vital Signs Date Time Temp Pulse Resp B/P (MAP) Pulse Ox O2 Delivery O2 Flow Rate FiO2 12/13/17 01:22 97.6 84 20 136/80 97 Room Air 97.5 vitals normal Sp02 EP Interpretation: reviewed, normal General Appearance: well appearing, no apparent distress, alert Head: normocephalic, atraumatic Eyes: bilateral eye PERRL, bilateral eye EOMI ENT: hearing grossly normal, normal pharynx Neck: full range of motion, supple, no meningismus Respiratory: chest non-tender, lungs clear, normal breath sounds Cardiovascular #1: regular rate, rhythm, no murmur Gastrointestinal: normal bowel sounds, non tender, no mass, no organomegaly, no bruit, non-distended Musculoskeletal: back normal, gait/station normal, normal range of motion Psychiatric: mood/affect normal Skin: warm/dry Medical Decision Making Diagnostic Impression: Primary Impression: Gastritis Qualified Codes: K29.00 - Acute gastritis without bleeding ER Course Patient present with epigastric pain. He arty had blood work done at [facility] and I see no need for repeat blood work on him. Exam is benign. This is a chronic problem and has been going on for years. I offer him Maalox and viscous lidocaine as a GI cocktail. He said that doesn't help. He wanted pain medication. I see no evidence of an acute abdomen. No evidence of obstruction. Patient was not happy with this. He was being combative and said that I have to give him pain medication. I explained to him that narcotics does not treat this problem. He need to see a specialist. I see no documentation of him seen a GI doctor. Last Vital Signs Date Time Temp Pulse Resp B/P (MAP) Pulse Ox O2 Delivery O2 Flow Rate FiO2 12/13/17 01:22 97.6 84 20 136/80 97 Room Air 97.5 Status: unchanged Disposition: HOME, SELF-CARE Condition: Stable Additional Instructions: Follow-up with your doctor in 7 days. You need a referral to see a GI doctor. This cannot be done in the ER. Return if symptom worsen. Fill your prescription for gastritis from your doctor or from [facility]. JESSEE SIMON M.D. Dec 13, 2017 01:42
[2017-12-13] MEDS ORDERED: Lidocaine 2% Visc 15ml soln ORAL ONE (01:45)
[2017-12-13] MEDS ORDERED: Mylanta II UD 30ml ORAL ONE (01:45)
== END 2017-12-13 01:50 | disposition home or self-care (01) ==
LOC: EMR 01:45
DX: K29.70 Gastritis, unspecified, without bleeding (principal)
CPT/HCPCS: 99283

== ENCOUNTER 2018-12-16 12:03 | Emergency (ER) | payer MEDICAID, OTHER ==
[~2018-12-16] VITALS: Ht 160 cm; Wt 83.9 kg
[2018-12-16] MEDS ORDERED: OXYCODONE-ACET1 EAC5 ORAL (12:16)
--- NOTE | 2018-12-16 12:23 | NUR ---
ED Nurse Note: Pt came in due to feeling weak and dizzy x 5 days and states that he was sweating a lot this morning. Pt also c/o headache but denies N/V. No hx of DM. AAO x4 ,follows commands and ambulates with steady gait with non labored breathing. Skin is warm and dry.
[2018-12-16 12:25] VITALS: BP 156/68
--- NOTE | 2018-12-16 12:57 | Emergency Room Report ---
History of Present Illness General Chief Complaint: Dizziness Source: Patient Present Illness HPI Patient is a 43-year-old male who presents after increased dizziness and nausea. Patient reports having been taking medications for low back pain. Reports having multiple bulging disks in his low back. He states his been taking Percocet with some improvement in the pain. He reports having intermittent episodes of bilateral leg pain. He denies any changes in urination. He reports having some increased constipation. He denies any incontinence. He had reportedly been able to ambulate. Denies fever or recent procedures. He is states he is scheduled for surgery for his disks in his low back. Allergies: Coded Allergies: No Known Allergies (Unverified , 09/17/13) Patient History Past Medical History: see triage record Reviewed Nursing Documentation: PMH: Agreed; PSxH: Agreed Nursing Documentation-PMH Past Medical History: No History, Except For Review of Systems All Other Systems: negative except mentioned in HPI Physical Exam Vital Signs Date Time Temp Pulse Resp B/P (MAP) Pulse Ox O2 Delivery O2 Flow Rate FiO2 12/16/18 12:13 98.6 89 15 133/84 (100) 97 Room Air Sp02 EP Interpretation: reviewed, normal General Appearance: normal inspection, well appearing, no apparent distress, alert, GCS 15 Head: atraumatic ENT: normal ENT inspection, hearing grossly normal, normal voice Neck: normal inspection, full range of motion, supple, no bony tend Respiratory: normal inspection, lungs clear, normal breath sounds, no respiratory distress, no retraction, no wheezing Cardiovascular #1: regular rate, rhythm, no edema Gastrointestinal: normal inspection, normal bowel sounds, non tender, soft, no guarding, no hernia Genitourinary: no CVA tenderness Musculoskeletal: normal inspection, normal range of motion, decreased range of motion Neurologic: normal inspection, alert, oriented x3, responsive, 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 Differential diagnosis included but was not limited to herniated disc, cauda equina syndrome, abdominal aortic aneurysm , perforated ulcer, spinal epidural abscess, spinal stenosis, lumbar fracture, metastatic lesion, pyelonephritis. Does not show any signs of incontinence or urinary retention. Patient appears to have chronic low back pain and dizziness seems to be medication induced. He was given steroids in the emergency department. Patient was given prescription for symptomatic treatment. Patient was advised to recheck with primary care physician in 1-2 days. Patient to return for any worsening, pain, fever, incontinence or other concerns. Last Vital Signs Date Time Temp Pulse Resp B/P (MAP) Pulse Ox O2 Delivery O2 Flow Rate FiO2 12/16/18 12:25 98.6 76 14 156/68 96 Room Air Status: improved Disposition: HOME, SELF-CARE Condition: Stable Scripts Cyclobenzaprine Hcl* (FLEXERIL*) 10 Mg Tablet 10 MG ORAL TID PRN for Muscle Spasm, #15 TAB Prov: Sabino Marin MD 12/16/18 Sabino Marin MD Dec 16, 2018 12:57
[2018-12-16] MEDS ORDERED: Dexamethasone 4mg/ml vial IVP ONE (13:00)
[2018-12-16 13:11] LABS: ANION GAP 6 mmol/L (5-15); BLOOD UREA NITROGEN 10 mg/dL (7-18); CALCIUM 8.8 MG/DL (8.5-10.1); CARBON DIOXIDE 31 MMOL/L (21-32); CHLORIDE 103 MMOL/L (98-107); CREATININE 1.2 MG/DL (0.55-1.30); POTASSIUM 3.6 MMOL/L (3.5-5.1); SODIUM 140 MMOL/L (136-145)
[2018-12-16 13:17] LABS: EOSINOPHILS % (AUTO) 3.4 % (0.0-3.0); HEMATOCRIT 46.3 % (42.0-52.0); HEMOGLOBIN 16.2 G/DL (14.2-18.0); LYMPHOCYTES % (AUTO) 38.8 % (20.0-45.0); MEAN CORPUSCULAR VOLUME 89 FL (80-99); MONOCYTES % (AUTO) 5.7 % (1.0-10.0); NEUTROPHILS % (AUTO) 50.1 % (45.0-75.0); PLATELET COUNT 216 K/UL (150-450); RED CELL DISTRIBUTION WIDTH 11.2 % (11.6-14.8); WHITE BLOOD COUNT 7.8 K/UL (4.8-10.8)
[2018-12-16 13:23] LABS: ALANINE AMINOTRANSFERASE 36 U/L (12-78); ALBUMIN 3.9 G/DL (3.4-5.0); ALBUMIN/GLOBULIN RATIO 1.1 (1.0-2.7); ALKALINE PHOSPHATASE 56 U/L (46-116); ASPARTATE AMINO TRANSFERASE 26 U/L (15-37); BILIRUBIN,TOTAL 0.7 MG/DL (0.2-1.0)
--- NOTE | 2018-12-16 13:30 | NUR ---
ED Nurse Note: Pt reports lesser headache 5/10. Will continue to assess.
[2018-12-16] MEDS ORDERED: CYCLOBENZAPRINE10 MG ORAL (14:19)
[2018-12-16 14:40] VITALS: BP 148/75
--- NOTE | 2018-12-16 14:40 | NUR ---
ER DISCHARGE NOTE: Patient is cleared to be discharged per ERMD, pt is aox4, on room air, with stable vital signs. pt was given dc and prescription instructions, pt was able to verbalize understanding, pt id band and iv site removed without complications. pt is able to ambulate with steady gait. pt took all belongings.
== END 2018-12-16 14:40 | disposition home or self-care (01) ==
LOC: EMR 12:48
DX: M51.36 Other intervertebral disc degeneration, lumbar region (principal); R42 Dizziness and giddiness
CPT/HCPCS: 36415; 80053; 84443; 84484; 85025; 96374; J1100; J7040; Z7502; 99284

== ENCOUNTER 2019-05-02 22:12 | Emergency (ER) | payer MEDICAID ==
[~2019-05-02] VITALS: Ht 160 cm; Wt 83.9 kg
[~2019-05-02 22:12] MED LIST changes: +CYCLOBENZAPRINE10 MG ORAL; +OXYCODONE-ACET1 EAC5 ORAL
--- NOTE | 2019-05-02 23:41 | NUR ---
ED Nurse Note: Pt c/o 12/23 abdominal pain with N/V x3 days, pt had a similar episode 2 years ago, pt denies diarrhea. VSS
[2019-05-02 23:42] VITALS: BP 142/77
[2019-05-02] MEDS ORDERED: HYDROmorphone 1mg/ml Carpuject IVP ONE (23:45)
--- NOTE | 2019-05-02 23:52 | Emergency Room Report ---
History of Present Illness General Chief Complaint: Abdominal Pain Source: Patient Present Illness HPI This is a 43-year-old male with a history of gastritis. He presents with complaint epigastric pain. He has epigastric pain for the last 3 to 4 days. Has nausea and vomiting. Worse with eating. No fever chills but no diarrhea. Pain is achy in nature. History of gastritis in the past. Took Zantac before but no longer. Pain radiates to the upper quadrants. Pain is 8 out of 10. No fever chills. No urinary complaint. Allergies: Coded Allergies: No Known Allergies (Unverified , 09/17/13) Patient History Past Medical History: see triage record, old chart reviewed Past Surgical History: other Pertinent Family History: none Social History: Denies: smoking Immunizations: other Reviewed Nursing Documentation: PMH: Agreed; PSxH: Agreed Review of Systems Eye: Denies: eye pain, blurred vision ENT: Denies: ear pain, nose congestion, throat swelling Respiratory: Denies: cough, shortness of breath Cardiovascular: Denies: chest pain, palpitations Gastrointestinal: Reports: abdominal pain, nausea, vomiting; Denies: diarrhea Musculoskeletal: Denies: back pain, joint pain Skin: Denies: rash Neurological: Denies: headache, numbness Endocrine: Denies: increased thirst, increased urine Hematologic/Lymphatic: Denies: easy bruising All Other Systems: negative except mentioned in HPI Physical Exam Vital Signs Date Time Temp Pulse Resp B/P (MAP) Pulse Ox O2 Delivery O2 Flow Rate FiO2 05/02/19 22:17 97.9 91 18 142/77 (98) 96 Room Air Vitals unremarkable Sp02 EP Interpretation: reviewed, normal General Appearance: well appearing, no apparent distress, alert Head: normocephalic, atraumatic Eyes: bilateral eye PERRL, bilateral eye EOMI ENT: hearing grossly normal, normal pharynx Neck: full range of motion, supple, no meningismus Respiratory: chest non-tender, lungs clear, normal breath sounds Cardiovascular #1: regular rate, rhythm, no murmur Gastrointestinal: normal bowel sounds, no mass, no organomegaly, no bruit, non- distended, tenderness - Epigastric Musculoskeletal: back normal, normal range of motion, gait/station normal Psychiatric: mood/affect normal Medical Decision Making Diagnostic Impression: Primary Impression: Abdominal pain Qualified Codes: R10.13 - Epigastric pain ER Course Patient presents with epigastric abdominal pain. He had this problem before. He said he had gastritis. He had endoscopy in the past. Does not remember what not he has H. pylori or not. We will. He is comfortable but still complaining of pain. I look him up on the [employer] system. He was getting 90 tablets of [place] 10 mg every month. He claimed that his doctor stopped it last month. He said is been out for the last few days. This may be causing his symptoms. He said that his pain medication for herniated disc. He supposed to get back surgery. I see no evidence of any obstruction or acute abdomen. He looks stable otherwise. Will discharge home. CT/MRI/US Diagnostic Results CT/MRI/US Diagnostic Results : Imaging Test Ordered: CT abdomen and pelvis Impression Negative per radiologist Last Vital Signs Date Time Temp Pulse Resp B/P (MAP) Pulse Ox O2 Delivery O2 Flow Rate FiO2 05/02/19 23:42 97.9 91 18 142/77 96 Room Air Status: improved Disposition: HOME, SELF-CARE Condition: Stable Scripts Pantoprazole* (PROTONIX*) 40 Mg Tablet. 40 MG ORAL DAILY, #30 TAB Prov: Bienvenido Dinero MD 05/03/19 [facility],REFERRING (PCP) Additional Instructions: Follow-up with your doctor in 7 days. You may need referral to see a soils technician for endoscopy. Return if symptoms worsen. Bienvenido Dinero MD May 02, 2019 23:52
[2019-05-03] MEDS ORDERED: Pantoprazole Inj IVP ONE (00:15)
[2019-05-03] MEDS ORDERED: Mylanta II UD 30ml ORAL ONE (00:15)
[2019-05-03] MEDS ORDERED: Lidocaine 2% Visc 15ml soln ORAL ONE (00:15)
[2019-05-03 00:21] LABS: BASOPHILS % (AUTO) 1.7 % (0.0-2.0); EOSINOPHILS % (AUTO) 4.5 % (0.0-3.0); HEMATOCRIT 44.9 % (42.0-52.0); HEMOGLOBIN 16.3 G/DL (14.2-18.0); LYMPHOCYTES % (AUTO) 47.3 % (20.0-45.0); MEAN CORPUSCULAR VOLUME 88 FL (80-99); MONOCYTES % (AUTO) 5.4 % (1.0-10.0); NEUTROPHILS % (AUTO) 41.2 % (45.0-75.0); PLATELET COUNT 216 K/UL (150-450); RED BLOOD COUNT 5.12 M/UL (4.70-6.10); RED CELL DISTRIBUTION WIDTH 10.7 % (11.6-14.8); WHITE BLOOD COUNT 11.5 K/UL (4.8-10.8)
[2019-05-03 00:25] LABS: APPEARANCE,URINE CLEAR; BILIRUBIN, URINE NEGATIVE (NEGATIVE); COLOR,URINE PALE YELLOW; GLUCOSE, URINE (UA) NEGATIVE (NEGATIVE); KETONES,URINE NEGATIVE (NEGATIVE); LEUKOCYTE ESTERASE ,URINE NEGATIVE (NEGATIVE); NITRITE,URINE NEGATIVE (NEGATIVE); PH,URINE 7 (4.5-8.0); PROTEIN,URINE NEGATIVE (NEGATIVE); UROBILINOGEN,URINE NORMAL MG/DL (0.0-1.0)
--- NOTE | 2019-05-03 00:30 | NUR ---
ED Nurse Note: Pt to CT
[2019-05-03 00:32] LABS: ANION GAP 8 mmol/L (5-15); BLOOD UREA NITROGEN 15 mg/dL (7-18); CARBON DIOXIDE 30 MMOL/L (21-32); CHLORIDE 106 MMOL/L (98-107); CREATININE 0.8 MG/DL (0.55-1.30); POTASSIUM 3.8 MMOL/L (3.5-5.1); SODIUM 144 MMOL/L (136-145)
[2019-05-03 00:37] LABS: ALANINE AMINOTRANSFERASE 41 U/L (12-78); ALBUMIN 3.8 G/DL (3.4-5.0); ALKALINE PHOSPHATASE 59 U/L (46-116); ASPARTATE AMINO TRANSFERASE 20 U/L (15-37); BILIRUBIN,TOTAL 0.3 MG/DL (0.2-1.0)
--- NOTE | 2019-05-03 01:45 | NUR ---
ED Nurse Note: Pt back from CT
--- NOTE | 2019-05-03 02:03 | Diagnostic Imaging Report ---
Indication: Abdominal pain Technique: Spiral acquisitions obtained through the abdomen and pelvis. No oral contrast utilized, per emergency room physician request No IV contrast utilized, per referring physician request. Due to exclusion of the upper abdomen on the initial images, patient recalled for repeat imaging of the upper abdomen, dynamic of 05/04/2019. Multiplanar reconstructions were generated. Total dose length product 605 and 324 mGycm. CTDIvol(s) 10 and 11 mGy. Dose reduction achieved using automated exposure control Comparison: None. Reference is made to prior abdominal sonogram dated 12/22/2016 Findings: Normal appendix. No evidence of colonic diverticulosis or diverticulitis. No small bowel distention. No free or loculated intraperitoneal gas or fluid is evident. The distal esophagus, stomach, duodenum are unremarkable. Lack of IV contrast limits assessment of the GI tract. The liver, gallbladder, bile ducts, pancreas, spleen, adrenals, kidneys are unremarkable. No retroperitoneal or mesenteric mass or adenopathy. No pelvic mass or adenopathy. The included lung bases demonstrate posterior dependent atelectatic changes. There is a 5 mm noncalcified subpleural nodule on the left. The bones are unremarkable. Impression: 5 mm noncalcified left basilar nodule. If there is no significant smoking history or other risk factors for lung carcinoma, no further follow-up is necessary. If there are risk factors, recommend 6-12 months follow-up CT scan. This was not described on the original [facility] preliminary report, as this was not included on the original imaging volume, but is demonstrated on the repeat images. This was discussed by phone with Dr. Mir in the emergency room at the time of interpretation No acute or significant abnormality otherwise, given limitations of the exam described Incidental finding of basilar posterior dependent atelectatic changes The CT scanner at [facility] is accredited by the [employer] and the scans are performed using protocols designed to limit radiation exposure to as low as reasonably achievable to attain images of sufficient resolution adequate for diagnostic evaluation.
[2019-05-03] MEDS ORDERED: PROTONIX40 MG ORAL (02:05)
[2019-05-03 02:15] VITALS: BP 142/77
[2019-05-03] MEDS ORDERED: Morphine Sulfate 4mg/ml Inj (IV USE ONLY) IVP ONE (02:15)
== END 2019-05-03 02:15 | disposition home or self-care (01) ==
LOC: EMR 23:20
DX: R10.13 Epigastric pain (principal); R11.2 Nausea with vomiting, unspecified
CPT/HCPCS: 36415; 74176; 80053; 80307; 81003; 83690; 85025; 96374; 96375; J1170; J2270; J2405; S0164; Z7502; 99284

== ENCOUNTER → 2019-05-04 | Outpatient (CLI) | payer MEDICAID ==
[~2019-05-04] MED LIST changes: +PROTONIX40 MG ORAL
== END | disposition home or self-care (01) ==
LOC: CAT 10:37
DX: R10.9 Unspecified abdominal pain (principal)

== ENCOUNTER 2019-07-07 20:55 | Emergency (ER) | payer MEDICAID, OTHER ==
[~2019-07-07] VITALS: Ht 160 cm; Wt 83.9 kg
[2019-07-07 21:20] VITALS: BP 147/94
--- NOTE | 2019-07-07 21:20 | NUR ---
ED Nurse Note: Patient walked in to ED right flank pain x 5-6 days. Per pt, he was seen here couple days ago and was told that something was wrong with his xray. Not in any distress. No fever. Will cont to monitor.
--- NOTE | 2019-07-07 22:18 | NUR ---
ED Nurse Note: Urine specimen collecetd and sent to lab.
[2019-07-07 22:34] LABS: APPEARANCE,URINE CLEAR; BILIRUBIN, URINE NEGATIVE (NEGATIVE); COLOR,URINE AMBER; GLUCOSE, URINE (UA) NEGATIVE (NEGATIVE); KETONES,URINE NEGATIVE (NEGATIVE); LEUKOCYTE ESTERASE ,URINE NEGATIVE (NEGATIVE); NITRITE,URINE NEGATIVE (NEGATIVE); PH,URINE 5 (4.5-8.0); PROTEIN,URINE NEGATIVE (NEGATIVE); UROBILINOGEN,URINE NORMAL MG/DL (0.0-1.0)
--- NOTE | 2019-07-07 23:12 | Emergency Room Report ---
History of Present Illness General Chief Complaint: Pain Source: Patient Present Illness HPI Patient presents with complaints of right upper back pain Pointing to the flank region on the right side and posteriorly Reports that he feels that is the lungs Patient reports that he had imaging done recently here which showed some abnormality On review of medical records however the nodule was seen on the left side and there was no abnormality identified on the right side which is his discomfort today Patient has significant association with movement turning to the right turning to the left worsening the discomfort denies any pleurisy denies any fevers Denies any recent fever or chills Allergies: Coded Allergies: No Known Allergies (Unverified , 09/17/13) COVID-19 Screening Contact w/high risk pt: No Recent Travel to affected area: No Experienced COVID-19 symptoms?: No Patient History Past Medical History: see triage record Reviewed Nursing Documentation: PMH: Agreed; PSxH: Agreed Review of Systems All Other Systems: negative except mentioned in HPI Physical Exam Vital Signs Date Time Temp Pulse Resp B/P (MAP) Pulse Ox O2 Delivery O2 Flow Rate FiO2 07/07/19 21:11 98.1 80 16 147/94 (111) 95 Room Air Sp02 EP Interpretation: reviewed, normal General Appearance: well appearing, no apparent distress Head: normocephalic, atraumatic Eyes: bilateral eye PERRL, bilateral eye EOMI ENT: hearing grossly normal, normal pharynx, TMs + canals normal, uvula midline Neck: full range of motion, supple, no meningismus, no bony tend Respiratory: lungs clear, normal breath sounds, no rhonchi, no respiratory distress, no retraction, no accessory muscle use Cardiovascular #1: normal peripheral pulses, regular rate, rhythm, no edema, no gallop, no JVD, no murmur Gastrointestinal: normal bowel sounds, non tender, soft, no mass, no organomegaly, non-distended, no guarding, no hernia, no pulsatile mass, no rebound Genitourinary: no CVA tenderness Musculoskeletal: normal inspection Neurologic: motor strength/tone normal, carton marker machine III-XII nml as tested, oriented x3 , sensory intact, responsive Psychiatric: mood/affect normal Skin: no rash Lymphatic: normal inspection, no adenopathy Medical Decision Making Diagnostic Impression: Primary Impression: Flank pain ER Course Multiple differentials and consideration including but not limited to pneumonia , pulmonary embolism, other cardiac and renal pathology UTI Patient had chest x-ray obtained which was negative Urine sample also is clear without any signs of blood or protein Patient does have some musculoskeletal component with the discomfort And it appears to be possible etiology of discomfort Patient appears comfortable he does have blood work in the system from recent visit and I did not feel that these required to be repeated emergently patient was given a copy of his CT report which was Showing incidental findings in the left lower lobe and he will follow closely with primary physician Patient was also here with family at the same time at this time is cleared for close outpatient follow-up Labs Test 07/07/19 22:16 Urine Color [place] Urine Appearance Clear Urine pH 5 (4.5-8.0) Urine Specific [place] 1.025 (1.005-1.035) Urine Protein Negative (NEGATIVE) Urine Glucose (UA) Negative (NEGATIVE) Urine Ketones Negative (NEGATIVE) Urine Blood Negative (NEGATIVE) Urine Nitrite Negative (NEGATIVE) Urine Bilirubin Negative (NEGATIVE) Urine Ictotest Negative (NEGATIVE) Urine Urobilinogen Normal MG/DL (0.0-1.0) Urine Leukocyte Esterase Negative (NEGATIVE) Chest X-Ray Diagnostic Results Chest X-Ray Diagnostic Results : Chest X-Ray Ordered: Yes # of Views/Limited/Complete: 1 View Indication: Chest Pain EP Interpretation: Yes Interpretation: no consolidation, no effusion, no pneumothorax Impression: No acute disease Electronically Signed by: Kendal Parker DO Last Vital Signs Date Time Temp Pulse Resp B/P (MAP) Pulse Ox O2 Delivery O2 Flow Rate FiO2 07/07/19 21:20 98.1 80 16 147/94 95 Room Air Status: improved Disposition: HOME, SELF-CARE Condition: Improved Scripts Ibuprofen* (MOTRIN*) 600 Mg Tablet 600 MG ORAL Q8H PRN for FOR PAIN, #20 TAB 0 Refills Prov: Kendal Parker DO 07/07/19 Referrals: [facility] (PCP) Additional Instructions: Patient is provided with the discharge instructions notified to follow up with primary doctor in the next 2-3 days otherwise return to the er with any worsening symptoms. Please note that this report is being documented using [employer] technology. This can lead to erroneous entry secondary to incorrect interpretation by the dictating instrument. Kendal Parker DO Jul 07, 2019 23:12
[2019-07-07] MEDS ORDERED: IBUPROFEN600 M1 ORAL (23:13)
[2019-07-07 23:20] VITALS: BP 135/86
--- NOTE | 2019-07-07 23:20 | NUR ---
ED Nurse Note: Pt cleared by ERMD for discharge. DC instructions/prescription was given and explained to pt and verbalized understanding of teachings. All medical deviecs such as ID band removed. Pt is AAO x4, ambulatory and left with all personal belongings.
--- NOTE | 2019-07-08 12:23 | Diagnostic Imaging Report ---
Indication: Chest pain Technique: One view of the chest Comparison: none Findings: Lungs and pleural spaces are clear. Heart size is normal. Impression: No acute process
== END 2019-07-07 23:20 | disposition home or self-care (01) ==
LOC: EMR 22:15
DX: R10.9 Unspecified abdominal pain (principal); M54.6 Pain in thoracic spine
CPT/HCPCS: 71045; 81003; Z7502; 99283

== ENCOUNTER → 2019-08-02 | Emergency (ER) | payer OTHER ==
[~2019-08-02] VITALS: Ht 160 cm; Wt 83.9 kg
[~2019-08-02] MED LIST changes: +HYDROcodone/Acetamin 5/325 tab ORAL ONE; +IBUPROFEN600 M1 ORAL; +Ketorolac 60mg Inj IM ONE
--- NOTE | 2019-08-02 01:05 | NUR ---
ED Nurse Note: Lisa walked into ED c/o right lower back pain onset for 3 days now, states that he initially woke up from bed one day feeling this way, denies any plling or straining activities, patient is alert and oriented x4, reports his pain to be 10/10 pain. states that he took 2 pills of tylenol of unknown dosage 2 hours ago however has found no relief.
[2019-08-02 01:10] VITALS: BP 141/97
--- NOTE | 2019-08-02 01:21 | Emergency Room Report ---
History of Present Illness General Chief Complaint: Lower Back Pain or Injury Source: Patient Present Illness [facility] This a 43-year-old male with no past medical history. He presents with chief complaint of right flank pain. Onset for last 3 to 4 days. Worse with movement. Better with rest. Pain is sharp and achy in nature. 8 out of 10. No radiation. No nausea no vomiting. No dysuria frequency. No hematuria. Ciag-lin-cojsqol medication and ointment is not helping. Allergies: Coded Allergies: No Known Allergies (Unverified , 09/17/13) COVID-19 Screening Contact w/high risk pt: No Recent Travel to affected area: No Experienced COVID-19 symptoms?: No COVID-19 Testing performed CLAIM REP: Yes - patient forgot location COVID-19 Screening: Negative COVID-19 COVID-19 Testing Source: unk Patient History Past Medical History: see triage record, old chart reviewed Past Surgical History: none Pertinent Family History: none Social History: Denies: smoking Immunizations: other Reviewed Nursing Documentation: PMH: Agreed; PSxH: Agreed Nursing Documentation-PMH Past Medical History: No History, Except For Review of Systems Eye: Denies: eye pain, blurred vision ENT: Denies: ear pain, nose congestion, throat swelling Respiratory: Denies: cough, shortness of breath Cardiovascular: Denies: chest pain, palpitations Gastrointestinal: Denies: abdominal pain, diarrhea, nausea, vomiting Musculoskeletal: Reports: back pain; Denies: joint pain Skin: Denies: rash Neurological: Denies: headache, numbness Endocrine: Denies: increased thirst, increased urine Hematologic/Lymphatic: Denies: easy bruising All Other Systems: negative except mentioned in HPI Physical Exam Vital Signs Date Time Temp Pulse Resp B/P (MAP) Pulse Ox O2 Delivery O2 Flow Rate FiO2 08/02/19 01:01 97.9 86 18 141/97 (112) 98 Room Air Vitals normal Sp02 EP Interpretation: reviewed, normal General Appearance: well appearing, no apparent distress, alert Head: normocephalic, atraumatic Eyes: bilateral eye PERRL, bilateral eye EOMI ENT: hearing grossly normal, normal pharynx Neck: full range of motion, supple, no meningismus Respiratory: chest non-tender, lungs clear, normal breath sounds Cardiovascular #1: regular rate, rhythm, no murmur Gastrointestinal: normal bowel sounds, non tender, no mass, no organomegaly, no bruit, non-distended Musculoskeletal: back normal - Tenderness to the right flank with palpation., normal range of motion, gait/station normal Psychiatric: mood/affect normal Medical Decision Making Diagnostic Impression: Primary Impression: Back pain Qualified Codes: M54.5 - Low back pain ER Course Patient presents with back pain. This is musculoskeletal in nature. No evidence of any kidney stone or infection. No evidence of cauda equina syndrome spinal epidural abscess or neoplastic process. CT/MRI/US Diagnostic Results CT/MRI/US Diagnostic Results : Imaging Test Ordered: CT abdomen pelvis Impression Negative per radiologist Last Vital Signs Date Time Temp Pulse Resp B/P (MAP) Pulse Ox O2 Delivery O2 Flow Rate FiO2 08/02/19 01:10 97.9 80 18 141/97 98 Room Air Status: improved Disposition: HOME, SELF-CARE Condition: Stable Scripts Hydrocodone/Acetaminophen 5-325* (HYDROCODONE/ACETAMINOPHEN 5-325*) 1 Each Tablet 1 TAB ORAL Q6H PRN for For Pain, #15 TAB 0 Refills Prov: Bienvenido Dinero MD 08/02/19 Ibuprofen* (MOTRIN*) 600 Mg Tablet 600 MG ORAL THREE TIMES A DAY, #30 TAB Prov: Bienvenido Dinero MD 08/02/19 Referrals: [facility] (PCP) Patient Instructions: Lumbosacral Strain Additional Instructions: No heavy lifting. Follow-up with your doctor in 7 days. Return if symptoms worsen. Bienvenido Dinero MD August 02, 2019 01:21
--- NOTE | 2019-08-02 01:25 | NUR ---
HAND-OFF: Report given to ALONA Beaulieu.
[2019-08-02 01:27] LABS: BILIRUBIN, URINE NEGATIVE (NEGATIVE); COLOR,URINE PALE YELLOW; GLUCOSE, URINE (UA) NEGATIVE (NEGATIVE); KETONES,URINE NEGATIVE (NEGATIVE); LEUKOCYTE ESTERASE ,URINE NEGATIVE (NEGATIVE); NITRITE,URINE NEGATIVE (NEGATIVE); PH,URINE 6 (4.5-8.0); PROTEIN,URINE NEGATIVE (NEGATIVE); UROBILINOGEN,URINE NORMAL MG/DL (0.0-1.0)
[2019-08-02 01:30] LABS: APPEARANCE,URINE CLEAR
--- NOTE | 2019-08-02 01:30 | NUR ---
ED Nurse Note: Report received from ALONA Chandra. Pt is resting in bed. NAD.
--- NOTE | 2019-08-02 02:28 | Diagnostic Imaging Report ---
EXAM: CT Abdomen and Pelvis Without Intravenous Contrast CLINICAL HISTORY: PAIN TECHNIQUE: Axial computed tomography images of the abdomen and pelvis without intravenous contrast. CTDI is 10.7 mGy and DLP is 582 mGy-cm. One or more of the following dose reduction techniques were used: automated exposure control, adjustment of the mA and/or kV according to patient size, use of iterative reconstruction technique. Coronal and sagittal reformatted images were created and reviewed. COMPARISON: 05/03/19 FINDINGS: Lung bases: Nonspecific 4 mm soft tissue density nodule in the left lower lobe. This area was not imaged on the prior exam. Fleischner Society Guidelines for low-risk patients, no follow-up is necessary. For high-risk patients (smoking history or other known risk factors) an optional chest CT at 12 months could be performed. Mild atelectasis at the lung bases. ABDOMEN: Liver: The liver is grossly unremarkable for a noncontrast CT. Gallbladder and bile ducts: The gallbladder is grossly unremarkable for a noncontrast CT. No calcified stones. No ductal dilation. Pancreas: The pancreas is grossly unremarkable for a noncontrast CT. No ductal dilation. Spleen: At least 2 very small nonspecific low-density lesions in the spleen. Adrenals: The adrenals are grossly unremarkable for a noncontrast CT. Kidneys and ureters: No evidence for hydronephrosis or perinephric stranding. No evidence for renal or ureteral stone. 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 Stomach and bowel: No evidence for bowel related inflammatory changes. No evidence for significant bowel loop dilation to suggest an obstructive process. PELVIS: Appendix: The appendix is unremarkable. Bladder: The bladder is grossly unremarkable. No stones. Reproductive: Unremarkable as visualized. ABDOMEN and PELVIS: Intraperitoneal space: No free intraperitoneal fluid or free intraperitoneal gas. Bones/joints: Exophytic bony lesion extending off the left iliac wing which may be related to a osteochondroma. This has a similar appearance compared to the prior exam. Degenerative changes of the thoracolumbar spine. No acute fracture. No dislocation. Soft tissues: Unremarkable. Vasculature: Unremarkable. No abdominal aortic aneurysm. Lymph nodes: Unremarkable. No enlarged lymph nodes. IMPRESSION: 1. No evidence for hydronephrosis or perinephric stranding. No evidence for renal or ureteral stone. 2. Nonspecific 4 mm soft tissue density nodule in the left lower lobe. This area was not imaged on the prior exam. Fleischner Society Guidelines for low-risk patients, no follow-up is necessary. For high- risk patients (smoking history or other known risk factors) an optional chest CT at 12 months could be performed.
[2019-08-02 02:50] VITALS: BP 135/85
--- NOTE | 2019-08-02 02:50 | NUR ---
ER DISCHARGE NOTE: Patient is cleared to be discharged per ERMD, pt is aox4, on room air, with stable vital signs. pt was given dc and prescription instructions, pt was able to verbalize understanding, pt id band removed. pt is able to ambulate with steady gait. pt took all belongings.
== END | disposition home or self-care (01) ==
LOC: EMR 01:17
DX: M54.5 Low back pain (principal)
CPT/HCPCS: 74176; 81003; 96372; Z7502; 99284

== ENCOUNTER 2019-09-13 04:29 | Emergency (ER) | payer OTHER ==
[~2019-09-13] VITALS: Ht 160 cm; Wt 83.9 kg
[~2019-09-13 04:29] MED LIST changes: -HYDROcodone/Acetamin 5/325 tab ORAL ONE; -Ketorolac 60mg Inj IM ONE
--- NOTE | 2019-09-13 04:45 | NUR ---
ED Nurse Note: Patient walked into the ED with c/o SOB. Per patient he was confused last night and mistakenly took 's medication instead of his. Per patient it caused SOB after taking it, but patient can't recall what medication it is. Pt o2 sat 100% on RA, EKG is NSR, T: 98F. Patient is AAOx4 and ambulatory. Denies flu like symptoms. Placed on monitor bed
--- NOTE | 2019-09-13 04:46 | NUR ---
ED Nurse Note: ERMD at bedside
--- NOTE | 2019-09-13 05:30 | Emergency Room Report ---
History of Present Illness General Chief Complaint: Dyspnea/Respdistress Source: Patient Present Illness HPI 43-year-old male presents the ED for shortness of breath. States he is having a hard time breathing. For the last 5 days. Denies chest pain. Denies fevers or chills. Denies cough. Denies leg swelling. Denies sick contacts or recent travel. Eating factors. Denies any other associated symptoms Allergies: Coded Allergies: No Known Allergies (Unverified , 09/17/13) COVID-19 Screening Contact w/high risk pt: No Recent Travel to affected area: No Experienced COVID-19 symptoms?: No COVID-19 Testing performed KAIAWHINA KURA [place] MAORI: Yes COVID-19 Screening: Negative COVID-19 [facility] Patient History Past Medical History: none Past Surgical History: none Pertinent Family History: none Social History: Denies: smoking, alcohol use, drug use Immunizations: UTD Reviewed Nursing Documentation: PMH: Agreed; PSxH: Agreed Nursing Documentation-PMH Past Medical History: No History, Except For Review of Systems All Other Systems: negative except mentioned in HPI Physical Exam Vital Signs Date Time Temp Pulse Resp B/P (MAP) Pulse Ox O2 Delivery O2 Flow Rate FiO2 09/13/19 04:36 98.1 98 18 151/96 (114) 97 Room Air Sp02 EP Interpretation: reviewed, normal General Appearance: no apparent distress, alert, GCS 15, non-toxic Head: normocephalic, atraumatic Eyes: bilateral eye normal inspection, bilateral eye PERRL ENT: hearing grossly normal, normal pharynx, no angioedema, normal voice Neck: full range of motion, supple/symm/no masses Respiratory: chest non-tender, lungs clear, normal breath sounds, speaking full sentences Cardiovascular #1: regular rate, rhythm, no edema Cardiovascular #2: 2+ carotid (R), 2+ carotid (L), 2+ radial (R), 2+ radial (L) , 2+ dorsalis pedis (R), 2+ dorsalis pedis (L) Gastrointestinal: normal bowel sounds, non tender, soft, non-distended, no guarding, no rebound Rectal: deferred Genitourinary: normal inspection, no CVA tenderness Musculoskeletal: back normal, normal range of motion, gait/station normal, non- tender Neurologic: alert, motor strength/tone normal, oriented x3, sensory intact, responsive, speech normal Psychiatric: judgement/insight normal, memory normal, mood/affect normal, no suicidal/homicidal ideation Reflexes: 3+ bicep (R), 3+ bicep (L), 3+ tricep (R), 3+ tricep (L), 3+ knee (R) , 3+ knee (L) Lymphatic: no adenopathy Medical Decision Making Diagnostic Impression: Primary Impression: Dyspnea Qualified Codes: R06.00 - Dyspnea, unspecified ER Course Hospital Course 43-year-old M presents ED complaining of SOB. Differential diagnoses include: Rib fracture, DC/unstable angina, contusion, muscle strain Clinical course Patient placed on stretcher. After initial history and physical I ordered labs , EKG, chest x-ray. labs reviewed- all electrolytes normal, troponins negative, no leukocytosis, hemoglobin/hematocrit stable EKG- NSR no acute ischemic changes interpreted by me Chest x-ray-no cardiomegaly, no rib fracture, no pneumothorax, no acute process I discussed findings with patient. Vitals stable. Labs unremarkable. Lungs clear. Patient has no cardiac risk factors. Reassurance given. Anxiety could be contributing to symptoms. safe for discharge for close outpatient follow-up I. I feel this is a highly complex case requiring extensive working including EKG/Rhythm strip, Xray/CT/US, Blood/urine lab work, repeat exams while in ED, and administration of strong opiates/narcotics for pain control, admission to hospital or close patient follow up. Diagnosis - dyspnea Stable and discharged to home. Instructed to followup with PMD. Return to ED if symptoms recur or worsen Labs Test 09/13/19 05:00 White Blood Count 10.6 K/UL (4.8-10.8) Red Blood Count 5.11 M/UL (4.70-6.10) Hemoglobin 15.9 G/DL (14.2-18.0) Hematocrit 46.6 % (42.0-52.0) Mean Corpuscular Volume 91 FL (80-99) Mean Corpuscular Hemoglobin 31.1 PG (27.0-31.0) Mean Corpuscular Hemoglobin Concent 34.1 G/DL (32.0-36.0) Red Cell Distribution Width 11.5 % (11.6-14.8) Platelet Count 213 K/UL (150-450) Mean Platelet Volume 8.2 FL (6.5-10.1) Neutrophils (%) (Auto) 37.8 % (45.0-75.0) Lymphocytes (%) (Auto) 51.1 % (20.0-45.0) Monocytes (%) (Auto) 5.6 % (1.0-10.0) Eosinophils (%) (Auto) 4.0 % (0.0-3.0) Basophils (%) (Auto) 1.6 % (0.0-2.0) Sodium Level 126 MMOL/L (136-145) Potassium Level 3.3 MMOL/L (3.5-5.1) Chloride Level 98 MMOL/L (98-107) Carbon Dioxide Level 25 MMOL/L (21-32) Blood Urea Nitrogen 12 mg/dL (7-18) Creatinine 0.9 MG/DL (0.55-1.30) Estimat Glomerular Filtration Rate > 60 mL/min (>60) Glucose Level 114 MG/DL (74-106) Calcium Level 8.3 MG/DL (8.5-10.1) Total Bilirubin 0.5 MG/DL (0.2-1.0) Aspartate Amino Transf (AST/SGOT) 22 U/L (15-37) Alanine Aminotransferase (ALT/SGPT) 27 U/L (12-78) Alkaline Phosphatase 53 U/L (46-116) Troponin I 0.000 ng/mL (0.000-0.056) Pro-B-Type Natriuretic Peptide 15 pg/mL (0-125) Total Protein 7.6 G/DL (6.4-8.2) Albumin 4.0 G/DL (3.4-5.0) Globulin 3.6 g/dL Albumin/Globulin Ratio 1.1 (1.0-2.7) EKG Diagnostic Results Rate: normal Rhythm: NSR ST Segments: no acute changes ASA given to the pt in ED: No Rhythm Strip Diag. Results EP Interpretation: yes Rhythm: NSR, no PVC's, no ectopy Chest X-Ray Diagnostic Results Chest X-Ray Diagnostic Results : Chest X-Ray Ordered: Yes # of Views/Limited/Complete: 1 View Indication: Shortness of Breath EP Interpretation: Yes Interpretation: no consolidation, no effusion, no pneumothorax, no acute cardiopulmonary disease Impression: No acute disease Electronically Signed by: Electronically signed by Jaylen Crowley MD Last Vital Signs Date Time Temp Pulse Resp B/P (MAP) Pulse Ox O2 Delivery O2 Flow Rate FiO2 09/13/19 04:36 98.1 98 18 151/96 (114) 97 Room Air Status: improved Disposition: HOME, SELF-CARE Condition: Stable Referrals: NON PHYSICIAN (PCP) Jaylen Crowley MD Sep 13, 2019 05:30
[2019-09-13 05:36] VITALS: BP 138/82
[2019-09-13 05:37] LABS: BASOPHILS % (AUTO) 1.6 % (0.0-2.0); HEMATOCRIT 46.6 % (42.0-52.0); HEMOGLOBIN 15.9 G/DL (14.2-18.0); LYMPHOCYTES % (AUTO) 51.1 % (20.0-45.0); MEAN CORPUSCULAR VOLUME 91 FL (80-99); MONOCYTES % (AUTO) 5.6 % (1.0-10.0); NEUTROPHILS % (AUTO) 37.8 % (45.0-75.0); PLATELET COUNT 213 K/UL (150-450); RED BLOOD COUNT 5.11 M/UL (4.70-6.10); RED CELL DISTRIBUTION WIDTH 11.5 % (11.6-14.8); WHITE BLOOD COUNT 10.6 K/UL (4.8-10.8)
[2019-09-13 06:02] LABS: ALANINE AMINOTRANSFERASE 27 U/L (12-78); ALBUMIN/GLOBULIN RATIO 1.1 (1.0-2.7); ALKALINE PHOSPHATASE 53 U/L (46-116); ASPARTATE AMINO TRANSFERASE 22 U/L (15-37); BILIRUBIN,TOTAL 0.5 MG/DL (0.2-1.0); BLOOD UREA NITROGEN 12 mg/dL (7-18); CALCIUM 8.3 MG/DL (8.5-10.1); CARBON DIOXIDE 25 MMOL/L (21-32); CREATININE 0.9 MG/DL (0.55-1.30)
[2019-09-13 06:27] VITALS: BP 128/72
[2019-09-13 06:55] LABS: CHLORIDE 98 MMOL/L (98-107); POTASSIUM 3.3 MMOL/L (3.5-5.1); SODIUM 126 MMOL/L (136-145)
--- NOTE | 2019-09-13 08:57 | Diagnostic Imaging Report ---
Indication: Shortness of breath Technique: One view of the chest Comparison: For 03/06/2019 Findings: Lungs and pleural spaces are clear. Heart size is normal. No significant change Impression: No acute process
== END 2019-09-13 06:28 | disposition home or self-care (01) ==
LOC: EMR 04:50
DX: R06.00 Dyspnea, unspecified (principal)
CPT/HCPCS: 36415; 71045; 80053; 83880; 84484; 85025; 93005; Z7502; 99283

== ENCOUNTER 2019-09-25 11:24 | Emergency (ER) | payer OTHER ==
[~2019-09-25] VITALS: Ht 160 cm; Wt 88.5 kg
[2019-09-25 11:42] LABS: APPEARANCE,URINE CLEAR; BILIRUBIN, URINE NEGATIVE (NEGATIVE); GLUCOSE, URINE (UA) NEGATIVE (NEGATIVE); KETONES,URINE NEGATIVE (NEGATIVE); LEUKOCYTE ESTERASE ,URINE 2+ (NEGATIVE); NITRITE,URINE NEGATIVE (NEGATIVE); PH,URINE 6.5 (4.5-8.0); PROTEIN,URINE NEGATIVE (NEGATIVE); UROBILINOGEN,URINE 1 MG/DL (0.0-1.0)
[2019-09-25] MEDS ORDERED: Ketorolac 30mg Inj IV ONE (11:45)
[2019-09-25 11:47] LABS: COLOR,URINE YELLOW
[2019-09-25 11:49] LABS: BASOPHILS % (AUTO) 1.1 % (0.0-2.0); HEMATOCRIT 48.4 % (42.0-52.0); HEMOGLOBIN 16.1 G/DL (14.2-18.0); LYMPHOCYTES % (AUTO) 42.7 % (20.0-45.0); MEAN CORPUSCULAR VOLUME 92 FL (80-99); NEUTROPHILS % (AUTO) 48.1 % (45.0-75.0); PLATELET COUNT 216 K/UL (150-450); RED BLOOD COUNT 5.25 M/UL (4.70-6.10); RED CELL DISTRIBUTION WIDTH 11.5 % (11.6-14.8); WHITE BLOOD COUNT 9.6 K/UL (4.8-10.8)
[2019-09-25 11:57] LABS: ANION GAP 10 mmol/L (5-15); BLOOD UREA NITROGEN 12 mg/dL (7-18); CARBON DIOXIDE 30 MMOL/L (21-32); CHLORIDE 101 MMOL/L (98-107); POTASSIUM 3.3 MMOL/L (3.5-5.1); SODIUM 141 MMOL/L (136-145)
[2019-09-25 11:58] VITALS: BP 151/90
[2019-09-25 12:02] LABS: ALANINE AMINOTRANSFERASE 33 U/L (12-78); ALBUMIN 4.5 G/DL (3.4-5.0); ALBUMIN/GLOBULIN RATIO 1.2 (1.0-2.7); ALKALINE PHOSPHATASE 57 U/L (46-116); ASPARTATE AMINO TRANSFERASE 20 U/L (15-37); BILIRUBIN,TOTAL 0.7 MG/DL (0.2-1.0)
--- NOTE | 2019-09-25 12:41 | Diagnostic Imaging Report ---
EXAM: CT Abdomen and Pelvis Without Intravenous Contrast CLINICAL HISTORY: PAIN TECHNIQUE: Axial computed tomography images of the abdomen and pelvis without intravenous contrast. CTDI is 10.3 mGy and DLP is 577 mGy-cm. One or more of the following dose reduction techniques were used: automated exposure control, adjustment of the mA and/or kV according to patient size, use of iterative reconstruction technique. COMPARISON: CT abdomen and pelvis 08/02/19 FINDINGS: Lung bases: Left lower lung 4.5 mm subpleural nodule, stable. Mild bibasilar lung atelectasis. ABDOMEN: Liver: Unremarkable. Gallbladder and bile ducts: Unremarkable. No calcified stones. No ductal dilation. Pancreas: Unremarkable. No ductal dilation. Spleen: Unremarkable. No splenomegaly. Adrenals: Unremarkable. No mass. Kidneys and ureters: Duplex left renal collecting system. No obstructive uropathy. No renal stones. Stomach and bowel: Unremarkable. No obstruction. No mucosal thickening. PELVIS: Appendix: Normal appendix. Bladder: Unremarkable. No stones. Reproductive: Unremarkable as visualized. ABDOMEN and PELVIS: Intraperitoneal space: Unremarkable. No free air. No significant fluid collection. Bones/joints: Left superior iliac wing exophytic calcification, likely osteochondroma, stable. No acute fracture. No dislocation. Soft tissues: Small bilateral fat-containing inguinal hernias. Vasculature: Unremarkable. No abdominal aortic aneurysm. Lymph nodes: Unremarkable. No enlarged lymph nodes. IMPRESSION: 1. No acute process. 2. Normal appendix. 3. Left lower lung 4.5 mm subpleural nodule, stable. 4. Left superior iliac wing exophytic calcification, likely osteochondroma, stable.
[2019-09-25] MEDS ORDERED: NORCO 5-325 TA1 EAC1 ORAL (13:14)
[2019-09-25] MEDS ORDERED: FAMOTIDINE20 MG ORAL (13:14)
[2019-09-25] MEDS ORDERED: HYDROcodone/Acetamin 5/325 tab ORAL ONE (13:15)
[2019-09-25 13:20] VITALS: BP 148/88
--- NOTE | 2019-09-25 13:46 | Emergency Room Report ---
History of Present Illness General Chief Complaint: Abdominal Pain Source: Patient Present Illness HPI Patient is a 43-year-old male who presented for right-sided flank pain. Onset of symptoms several days ago. Denies any fever. Pain is worse by eating. Denies any vomiting or diarrhea. Denies any bloody stools. Previous history of gastritis as well as back problems. Denies any diarrhea or worsening pain. Denies any skin rash or numbness. No urinary changes. Allergies: Coded Allergies: No Known Allergies (Unverified , 09/17/13) COVID-19 Screening Contact w/high risk pt: No Recent Travel to affected area: No Experienced COVID-19 symptoms?: No COVID-19 Testing performed TRAINING PROGRAM ASSISTANT: No Patient History Past Medical History: see triage record Reviewed Nursing Documentation: PMH: Agreed; PSxH: Agreed Nursing Documentation-PMH Past Medical History: No Stated History Review of Systems All Other Systems: negative except mentioned in HPI Physical Exam Vital Signs Date Time Temp Pulse Resp B/P (MAP) Pulse Ox O2 Delivery O2 Flow Rate FiO2 09/25/19 11:27 98.4 92 17 151/90 (110) 98 Room Air Sp02 EP Interpretation: reviewed, normal General Appearance: normal inspection, well appearing, no apparent distress, alert, GCS 15, non-toxic Head: atraumatic ENT: normal ENT inspection, hearing grossly normal, normal voice Neck: normal inspection, full range of motion, supple, no bony tend Respiratory: normal inspection, lungs clear, normal breath sounds, no respiratory distress, no retraction, no wheezing Cardiovascular #1: regular rate, rhythm, no edema Gastrointestinal: normal inspection, normal bowel sounds, non tender, soft, no guarding, no hernia Genitourinary: no CVA tenderness Musculoskeletal: normal inspection, back normal, normal range of motion Neurologic: alert, motor strength/tone normal, pneumatic hoist operator III-XII nml as tested, oriented x3, responsive, speech normal, normal inspection Psychiatric: normal inspection, judgement/insight normal, mood/affect normal Medical Decision Making Diagnostic Impression: Primary Impression: Flank pain ER Course Patient presented for flank pain. Differential diagnosis included was not limited to pneumonia, renal stone, rib fracture, pulmonary embolism, ulcer, enteritis, pyelonephritis among others. CT imaging showed no evidence of acute pathology. There were nodules noted in the lung which patient was aware of in the past. Rate see radiology report for full details. Patient was given copy of his report and advised to follow-up with his primary care physician he was given prescription for acid blockers. He is advised to return if worse. This medical record is generated with [employer] prizer hand software. There may be some prizer hand discrepancies related to use of this software Labs Test 09/25/19 11:33 09/25/19 11:38 Urine Color Yellow Urine Appearance Clear Urine pH 6.5 (4.5-8.0) Urine Specific [place] 1.015 (1.005-1.035) Urine Protein Negative (NEGATIVE) Urine Glucose (UA) Negative (NEGATIVE) Urine Ketones Negative (NEGATIVE) Urine Blood Negative (NEGATIVE) Urine Nitrite Negative (NEGATIVE) Urine Bilirubin Negative (NEGATIVE) Urine Urobilinogen 1 MG/DL (0.0-1.0) Urine Leukocyte Esterase 2+ (NEGATIVE) Urine RBC 0-2 /HPF (0 - 0) Urine WBC 2-4 /HPF (0 - 0) Urine Squamous Epithelial Cells Occasional /LPF Urine Bacteria Occasional /HPF (NONE) Urine Mucus Few /LPF (NONE/OCC) White Blood Count 9.6 K/UL (4.8-10.8) Red Blood Count 5.25 M/UL (4.70-6.10) Hemoglobin 16.1 G/DL (14.2-18.0) Hematocrit 48.4 % (42.0-52.0) Mean Corpuscular Volume 92 FL (80-99) Mean Corpuscular Hemoglobin 30.7 PG (27.0-31.0) Mean Corpuscular Hemoglobin Concent 33.3 G/DL (32.0-36.0) Red Cell Distribution Width 11.5 % (11.6-14.8) Platelet Count 216 K/UL (150-450) Mean Platelet Volume 8.1 FL (6.5-10.1) Neutrophils (%) (Auto) 48.1 % (45.0-75.0) Lymphocytes (%) (Auto) 42.7 % (20.0-45.0) Monocytes (%) (Auto) 5.0 % (1.0-10.0) Eosinophils (%) (Auto) 3.0 % (0.0-3.0) Basophils (%) (Auto) 1.1 % (0.0-2.0) Sodium Level 141 MMOL/L (136-145) Potassium Level 3.3 MMOL/L (3.5-5.1) Chloride Level 101 MMOL/L (98-107) Carbon Dioxide Level 30 MMOL/L (21-32) Anion Gap 10 mmol/L (5-15) Blood Urea Nitrogen 12 mg/dL (7-18) Creatinine 1.0 MG/DL (0.55-1.30) Estimat Glomerular Filtration Rate > 60 mL/min (>60) Glucose Level 111 MG/DL (74-106) Calcium Level 9.0 MG/DL (8.5-10.1) Total Bilirubin 0.7 MG/DL (0.2-1.0) Aspartate Amino Transf (AST/SGOT) 20 U/L (15-37) Alanine Aminotransferase (ALT/SGPT) 33 U/L (12-78) Alkaline Phosphatase 57 U/L (46-116) Total Protein 8.2 G/DL (6.4-8.2) Albumin 4.5 G/DL (3.4-5.0) Globulin 3.7 g/dL Albumin/Globulin Ratio 1.2 (1.0-2.7) Lipase 114 U/L (73-393) Last Vital Signs Date Time Temp Pulse Resp B/P (MAP) Pulse Ox O2 Delivery O2 Flow Rate FiO2 09/25/19 13:20 98.4 18 148/88 99 Room Air 09/25/19 11:58 92 Status: improved Disposition: HOME, SELF-CARE Condition: Stable Scripts Famotidine* (Pepcid 20mg tablet*) 20 Mg Tablet 20 MG ORAL TWICE A DAY, #60 TAB 0 Refills Prov: Sabino Marin MD 09/25/19 Hydrocodone Bit/Acetaminophen 5-325* (NORCO 5-325 TABLET*) 1 Each Tablet 1 TAB ORAL Q4H PRN for FOR PAIN, #12 TAB 0 Refills Prov: Sabino Marin MD 09/25/19 Referrals: NON PHYSICIAN (PCP) Patient Instructions: Abdominal Pain, Adult Additional Instructions: Follow up with your doctor for recheck. Return if worse. Sabino Marin MD Sep 25, 2019 13:46
== END 2019-09-25 13:20 | disposition home or self-care (01) ==
LOC: EMR 13:04
DX: R10.9 Unspecified abdominal pain (principal); K40.20 Bilateral inguinal hernia, without obstruction or gangrene, not specified as recurrent
CPT/HCPCS: 36415; 74176; 80053; 81003; 83690; 85025; 96374; J1885; Z7502; 99284

== ENCOUNTER 2019-10-12 10:21 | Emergency (ER) | payer OTHER ==
[~2019-10-12] VITALS: Ht 160 cm; Wt 83.9 kg
[~2019-10-12 10:21] MED LIST changes: +FAMOTIDINE20 MG ORAL; +NORCO 5-325 TA1 EAC1 ORAL
[2019-10-12] MEDS ORDERED: Morphine Sulfate 4mg/ml Inj (IV USE ONLY) ONE (10:44)
--- NOTE | 2019-10-12 10:46 | NUR ---
ED Nurse Note: Pt ambulated to ED d/t RT upper abdominal pain going on for a month; pt stated that he was seen and treated but he feels the same thing again. Pt arrived with an abdominal binder, removed after he was placed on bed. Pt's AOx4, VSS, on RA, afebrile on triage; denies any nausea/vomiting/diarrhea. will continue to monitor.
[2019-10-12 10:49] VITALS: BP 136/85
[2019-10-12 10:49] LABS: APPEARANCE,URINE CLEAR; BILIRUBIN, URINE NEGATIVE (NEGATIVE); COLOR,URINE PALE YELLOW; GLUCOSE, URINE (UA) NEGATIVE (NEGATIVE); KETONES,URINE NEGATIVE (NEGATIVE); LEUKOCYTE ESTERASE ,URINE NEGATIVE (NEGATIVE); NITRITE,URINE NEGATIVE (NEGATIVE); PH,URINE 7 (4.5-8.0); PROTEIN,URINE NEGATIVE (NEGATIVE); UROBILINOGEN,URINE NORMAL MG/DL (0.0-1.0)
[2019-10-12 10:51] LABS: EOSINOPHILS % (AUTO) 3.5 % (0.0-3.0); HEMATOCRIT 50.3 % (42.0-52.0); LYMPHOCYTES % (AUTO) 48.5 % (20.0-45.0); MEAN CORPUSCULAR VOLUME 90 FL (80-99); MONOCYTES % (AUTO) 6.5 % (1.0-10.0); NEUTROPHILS % (AUTO) 39.6 % (45.0-75.0); PLATELET COUNT 230 K/UL (150-450); RED BLOOD COUNT 5.58 M/UL (4.70-6.10); RED CELL DISTRIBUTION WIDTH 11.5 % (11.6-14.8); WHITE BLOOD COUNT 7.8 K/UL (4.8-10.8)
--- NOTE | 2019-10-12 10:55 | Emergency Room Report ---
History of Present Illness General Chief Complaint: Abdominal Pain Source: Patient Present Illness HPI Disclaimer: Please note that this report is being documented using [employer] technology. This can lead to erroneous entry secondary to incorrect interpretation by the dictating instrument. HPI: 43-year-old male presents for evaluation of right-sided abdominal pain. Symptoms present intermittently for approximately 1 month. He was seen in this emergency department 2 weeks ago where labs and CT scan were unremarkable. His complaint was more flank pain at that time but now states it was more anteriorly. Is worse with bending and twisting motion, deep inspiration, coughing. Has been taking antacids without significant improvement. Denies chest pain, shortness of breath, fever, chills, diarrhea, nausea or vomiting. Denies alcohol use. No history of pancreatitis or kidney stones or kidney disease according to patient. PMH: Gastritis PSH: Denies Allergies: Denies Social Hx: Denies Allergies: Coded Allergies: No Known Allergies (Unverified , 09/17/13) COVID-19 Screening Contact w/high risk pt: No Recent Travel to affected area: No Experienced COVID-19 symptoms?: No COVID-19 Testing performed MILIEU THERAPIST: No Review of Systems All Other Systems: negative except mentioned in HPI Physical Exam Vital Signs Date Time Temp Pulse Resp B/P (MAP) Pulse Ox O2 Delivery O2 Flow Rate FiO2 10/12/19 10:25 98.4 104 22 136/85 (102) 96 Room Air General: Awake and alert, appears mildly uncomfortable HEENT: NC/AT. EOMI. Cardiovascular: RRR. S1 and S2 normal. No murmur appreciated Resp: Normal work of breathing. No cough, wheezing or crackles appreciated Abdomen: Abdomen is soft, nondistended. Tender to palpation in the right upper quadrant, epigastrium. Positive Garcia's tenderness. No lower quadrant tenderness or suprapubic tenderness. No guarding. Skin: Intact. No abrasions, laceration or rash over the exposed skin MSK: Normal tone and bulk. Moving all extremities. No obvious deformity. Neuro: Awake and alert. Mentating appropriately. Medical Decision Making Diagnostic Impression: Primary Impression: Abdominal pain ER Course 43-year-old male presents for evaluation of right-sided abdominal pain. Symptoms have been intermittent for the past month. Concern for gastritis, gastroenteritis, pancreatitis, cholecystitis, cholelithiasis, biliary colic, nephrolithiasis, musculoskeletal spasm or strain to name a few. Patient's recent lab and imaging were unremarkable aside from stable lung nodule which the patient is aware of. He denies any new injury. A bedside limited ultrasound of the gallbladder and kidneys was performed by me. No pericholecystic fluid, gallbladder wall normal width, possible stone versus sludge at the neck. No evidence of hydronephrosis or other kidney abnormality based on limited exam. Labs were obtained and returned within normal limits. A formal ultrasound was ordered. 1315: Abdominal ultrasound did not find evidence of acute cholecystitis or find gallstones or sludge. Patient's abdominal pain feels better. Labs have returned within normal limits. This may be related to the patient's gastritis and would benefit from a GI consult. He states he had an EGD 4 years ago which was unremarkable but he is amenable to following up with gastroenterology. Patient is afebrile, has not been vomiting and is otherwise well-appearing. Given the recent CT scan that was unremarkable aside from the pulmonary nodules noted to the patient do not believe he requires repeat CT today. Will be discharged to follow-up with PMD and referred to gastroenterology. Will prescribe Robaxin, lidocaine patches possible musculoskeletal component of this as well as refill his pain medication for a brief course. Discussed reasons to return to the emergency department. He understands and agrees with this treatment plan. Laboratory Tests Test 10/12/19 10:35 White Blood Count 7.8 K/UL (4.8-10.8) Red Blood Count 5.58 M/UL (4.70-6.10) Hemoglobin 17.0 G/DL (14.2-18.0) Hematocrit 50.3 % (42.0-52.0) Mean Corpuscular Volume 90 FL (80-99) Mean Corpuscular Hemoglobin 30.4 PG (27.0-31.0) Mean Corpuscular Hemoglobin Concent 33.7 G/DL (32.0-36.0) Red Cell Distribution Width 11.5 % (11.6-14.8) L Platelet Count 230 K/UL (150-450) Mean Platelet Volume 7.4 FL (6.5-10.1) Neutrophils (%) (Auto) 39.6 % (45.0-75.0) L Lymphocytes (%) (Auto) 48.5 % (20.0-45.0) H Monocytes (%) (Auto) 6.5 % (1.0-10.0) Eosinophils (%) (Auto) 3.5 % (0.0-3.0) H Basophils (%) (Auto) 2.0 % (0.0-2.0) Urine Color Pale yellow Urine Appearance Clear Urine pH 7 (4.5-8.0) Urine Specific [place] 1.005 (1.005-1.035) Urine Protein Negative (NEGATIVE) Urine Glucose (UA) Negative (NEGATIVE) Urine Ketones Negative (NEGATIVE) Urine Blood Negative (NEGATIVE) Urine Nitrite Negative (NEGATIVE) Urine Bilirubin Negative (NEGATIVE) Urine Urobilinogen Normal MG/DL (0.0-1.0) Urine Leukocyte Esterase Negative (NEGATIVE) Sodium Level 142 MMOL/L (136-145) Potassium Level 3.5 MMOL/L (3.5-5.1) Chloride Level 104 MMOL/L (98-107) Carbon Dioxide Level 28 MMOL/L (21-32) Anion Gap 10 mmol/L (5-15) Blood Urea Nitrogen 10 mg/dL (7-18) Creatinine 1.0 MG/DL (0.55-1.30) Estimated Glomerular Filtration Rate > 60 mL/min (>60) Glucose Level 107 MG/DL (74-106) H Calcium Level 9.1 MG/DL (8.5-10.1) Total Bilirubin 0.7 MG/DL (0.2-1.0) Aspartate Amino Transferase (AST) 27 U/L (15-37) Alanine Aminotransferase (ALT) 43 U/L (12-78) Alkaline Phosphatase 56 U/L (46-116) Total Protein 8.2 G/DL (6.4-8.2) Albumin 4.2 G/DL (3.4-5.0) Globulin 4.0 g/dL Albumin/Globulin Ratio 1.0 (1.0-2.7) Lipase 120 U/L (73-393) Diagnostic POCUS Bedside Ultrasound Diagnostics: Bedside US Exam performed: Abd Limited Indication: Abdominal Pain Number of Views: Limited Interpreted by Emergency Physi: Yes Abdomen Limited interpretation: Gallbladder visualized, No pericholecystic fluid, GB wall thickness <3mm, Other - Positive sonographic Garcia, possible stone versus sludge at neck, no hydronephrosis Impression: Other - Possible gallstone Electronically Signed by: Electronically signed by Dr. Calixto Ortiz Last Vital Signs Date Time Temp Pulse Resp B/P (MAP) Pulse Ox O2 Delivery O2 Flow Rate FiO2 10/12/19 10:49 104 22 Room Air 10/12/19 10:49 98.4 136/85 96 Disposition: HOME, SELF-CARE Condition: Stable Scripts Lidocaine Patch* (Lidoderm Patch*) 1 Each Adh..patch 1 PATCH TOPIC DAILY, #30 PATCH Patch(es) may remain in place for up to 12 hours in any 24-hour period. Prov: Calixto Ortiz MD 10/12/19 Methocarbamol* (ROBAXIN-750*) 750 Mg Tablet 750 MG PO TID, #21 TAB 0 Refills Prov: Calixto Ortiz MD 10/12/19 Hydrocodone Bit/Acetaminophen 5-325* (NORCO 5-325 TABLET*) 1 Each Tablet 1 TAB ORAL Q4H PRN for FOR PAIN, #12 TAB 0 Refills Prov: Calixto Ortiz MD 10/12/19 Referrals: [facility],REFERRING (PCP) Calixto Ortiz MD Oct 12, 2019 10:55
[2019-10-12] MEDS ORDERED: Morphine Sulfate 4mg/ml Inj (IV USE ONLY) IVP ONE (11:00)
[2019-10-12 11:01] LABS: ANION GAP 10 mmol/L (5-15); BLOOD UREA NITROGEN 10 mg/dL (7-18); CALCIUM 9.1 MG/DL (8.5-10.1); CARBON DIOXIDE 28 MMOL/L (21-32); CHLORIDE 104 MMOL/L (98-107); POTASSIUM 3.5 MMOL/L (3.5-5.1); SODIUM 142 MMOL/L (136-145)
[2019-10-12 11:05] LABS: ALANINE AMINOTRANSFERASE 43 U/L (12-78); ALBUMIN 4.2 G/DL (3.4-5.0); ALKALINE PHOSPHATASE 56 U/L (46-116); ASPARTATE AMINO TRANSFERASE 27 U/L (15-37); BILIRUBIN,TOTAL 0.7 MG/DL (0.2-1.0)
--- NOTE | 2019-10-12 11:31 | NUR ---
ED Nurse Note: US AT THE BEDSIDE
--- NOTE | 2019-10-12 13:11 | Diagnostic Imaging Report ---
Indication: Abdominal pain Technique: Krishna-scale and duplex images of the upper abdomen were obtained Comparison: none Findings: Gallbladder is unremarkable, without stones, wall thickening, nor pericholecystic fluid. Sonographic Garcia's sign is negative. Common bile duct measures 5 mm in diameter. No intrahepatic biliary ductal dilatation. Liver demonstrates normal echogenicity, no focal abnormality. Portal vein and hepatic veins are patent. Pancreas is unremarkable. Spleen is unremarkable. Left kidney measures 11.6 cm in length. Right kidney measures 9.7 cm length. Both kidneys demonstrate normal echogenicity. There is no hydronephrosis. No focal abnormality . Non-aneurysmal abdominal aorta . Impression: Negative
[2019-10-12] MEDS ORDERED: ROBAXIN-750750 MG PO (13:13)
[2019-10-12] MEDS ORDERED: LIDODERM700 M1 TOPIC (13:13)
[2019-10-12] MEDS ORDERED: NORCO 5-325 TA1 EAC1 ORAL (13:13)
[2019-10-12 13:20] VITALS: BP 134/86
== END 2019-10-12 13:20 | disposition home or self-care (01) ==
LOC: EMR 10:38
DX: R10.9 Unspecified abdominal pain (principal)
CPT/HCPCS: 36415; 76700; 80053; 81003; 83690; 85025; 96374; J2270; Z7502; 99284

== ENCOUNTER 2020-02-16 03:24 | Emergency (ER) | payer OTHER ==
[~2020-02-16] VITALS: Ht 160 cm; Wt 83.9 kg
[~2020-02-16 03:24] MED LIST changes: +LIDODERM700 M1 TOPIC; +ROBAXIN-750750 MG PO
--- NOTE | 2020-02-16 03:57 | Emergency Room Report ---
History of Present Illness General Chief Complaint: Upper Extremity Injury Source: Patient Present Illness HPI Patient presents with left arm weakness numbness and pain. It starts in his shoulder and radiates down to his hand. Over the last 15 days or been 3 episodes where it is will awaken him from sleep. He took a tramadol tonight along with having local care from his . When asked where the tramadol was prescribed he is evasive. Denies any trauma. He denies headache or chest pain per se. The patient denies fevers or chills. The pain is rated 9/10 and aching. 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 Risk factor only of smoking for cardiac disease. Patient with multiple visits for abdominal and flank pain. Patient carries a diagnosis of gastritis also. Patient denies exposure to Covid positive contacts. No sore throat, palpitations, nausea, vomiting, diarrhea, dysuria, abdominal pain, shortness of breath, rashes, depression, anxiety, visual changes, dizziness. 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 COVID-19 Screening: Negative COVID-19 COVID-19 Testing Source: [facility] Patient History Past Medical History: old chart reviewed Social History: Reports: smoking; Denies: alcohol use, drug use Social History Narrative Unemployed and works construction Reviewed Nursing Documentation: PMH: Agreed; PSxH: Agreed Nursing Documentation-PM Past Medical History: No History, Except For Review of Systems All Other Systems: negative except mentioned in HPI Physical Exam Vital Signs Date Time Temp Pulse Resp B/P (MAP) Pulse Ox O2 Delivery O2 Flow Rate FiO2 02/16/20 03:39 97.3 81 18 133/81 (98) 98 Room Air Sp02 EP Interpretation: reviewed, normal General Appearance: well appearing, no apparent distress, GCS 15 Head: normocephalic, atraumatic Eyes: bilateral eye normal inspection, bilateral eye PERRL, bilateral eye EOMI ENT: moist mucus membranes Neck: supple Respiratory: chest non-tender, lungs clear, normal breath sounds Cardiovascular #1: regular rate, rhythm Cardiovascular #2: 2+ radial (R) Gastrointestinal: normal inspection, normal bowel sounds, non tender, no mass, non-distended Musculoskeletal: back normal, normal range of motion, gait/station normal, other - Passive range of motion normal shoulder without crepitance. No deformity Neurologic: alert, motor strength/tone normal, group leader III-XII nml as tested, DTRs symmetric, oriented x3, sensory intact, cerebellar normal, speech normal Psychiatric: mood/affect normal Skin: no rash, warm/dry, other - Patches and Trey wrap on left arm Medical Decision Making Diagnostic Impression: Primary Impression: Left arm pain ER Course Patient presents with left arm pain and numbness that awakened him from sleep 3 times in the last 15 days. Differential includes acute coronary syndrome, bursitis, stroke amongst others. Evaluation with EKG, chest x-ray, CT of the head and labs. Patient treated with Toradol. Patient states pain unchanged after toradol. Morphine ordered. EKG without injury. Chest x-ray normal. CT of the head without intracranial pathology. Labs unremarkable. Troponin negative. Patient states that pain in his arm is resolved completely. He states that the numbness is almost returned to normal. Likelihood of TIA is extremely low. No evidence of acute medical emergency at this time necessitating hospitalization. Discussed results with patient and treatment plan. Discussed the need for outpatient reevaluation. Patient stable for outpatient observation and treatment. Laboratory Tests Test 02/16/20 04:00 02/16/20 05:38 White Blood Count 9.8 K/UL (4.8-10.8) Red Blood Count 5.22 M/UL (4.70-6.10) Hemoglobin 16.7 G/DL (14.2-18.0) Hematocrit 47.8 % (42.0-52.0) Mean Corpuscular Volume 92 FL (80-99) Mean Corpuscular Hemoglobin 32.0 PG (27.0-31.0) H Mean Corpuscular Hemoglobin Concent 34.9 G/DL (32.0-36.0) Red Cell Distribution Width 12.3 % (11.6-14.8) Platelet Count 216 K/UL (150-450) Mean Platelet Volume 8.7 FL (6.5-10.1) Neutrophils (%) (Auto) 36.8 % (45.0-75.0) L Lymphocytes (%) (Auto) 51.3 % (20.0-45.0) H Monocytes (%) (Auto) 5.9 % (1.0-10.0) Eosinophils (%) (Auto) 4.6 % (0.0-3.0) H Basophils (%) (Auto) 1.4 % (0.0-2.0) Prothrombin Time 10.5 SEC (9.30-11.50) Prothrombin Time INR 0.9 (0.9-1.1) Activated Partial Thromboplast Time 26 SEC (23-33) Sodium Level 138 MMOL/L (136-145) Potassium Level 3.4 MMOL/L (3.5-5.1) L Chloride Level 104 MMOL/L (98-107) Carbon Dioxide Level 27 MMOL/L (21-32) Anion Gap 7 mmol/L (5-15) Blood Urea Nitrogen 13 mg/dL (7-18) Creatinine 1.1 MG/DL (0.55-1.30) Estimated Glomerular Filtration Rate > 60 mL/min (>60) Glucose Level 112 MG/DL (74-106) H Calcium Level 8.4 MG/DL (8.5-10.1) L Total Bilirubin 0.4 MG/DL (0.2-1.0) Aspartate Amino Transferase (AST) 22 U/L (15-37) Alanine Aminotransferase (ALT) 33 U/L (12-78) Alkaline Phosphatase 64 U/L (46-116) Total Creatine Kinase 204 U/L (26-308) Troponin I 0.000 ng/mL (0.000-0.056) Pro-B-Type Natriuretic Peptide 9 pg/mL (0-125) Total Protein 7.6 G/DL (6.4-8.2) Albumin 3.8 G/DL (3.4-5.0) Globulin 3.8 g/dL Albumin/Globulin Ratio 1.0 (1.0-2.7) Urine Color Yellow Urine Appearance Clear Urine pH 5 (4.5-8.0) Urine Specific Corbett 1.025 (1.005-1.035) Urine Protein 1+ (NEGATIVE) H Urine Glucose (UA) Negative (NEGATIVE) Urine Ketones Negative (NEGATIVE) Urine Blood Negative (NEGATIVE) Urine Nitrite Negative (NEGATIVE) Urine Bilirubin Negative (NEGATIVE) Urine Urobilinogen Normal MG/DL (0.0-1.0) Urine Leukocyte Esterase Negative (NEGATIVE) Urine RBC 0 /HPF (0 - 0) Urine WBC 0-2 /HPF (0 - 0) Urine Squamous Epithelial Cells Occasional /LPF Urine Bacteria Occasional /HPF (NONE) Urine Mucus Few /LPF (NONE/OCC) H Urine Opiates Screen Negative (NEGATIVE) Urine Barbiturates Screen Negative (NEGATIVE) Phencyclidine (PCP) Screen Negative (NEGATIVE) Urine Amphetamines Screen Negative (NEGATIVE) Urine Benzodiazepines Screen Negative (NEGATIVE) Urine Cocaine Screen Negative (NEGATIVE) Urine Marijuana (THC) Screen Negative (NEGATIVE) EKG Diagnostic Results Rate: normal Rhythm: NSR ST Segments: no acute changes Rhythm Strip Diag. Results EP Interpretation: yes Rhythm: NSR, no PVC's, no ectopy Chest X-Ray Diagnostic Results Chest X-Ray Diagnostic Results : Chest X-Ray Ordered: Yes # of Views/Limited/Complete: 1 View Indication: Chest Pain EP Interpretation: Yes Interpretation: no consolidation, no effusion, no pneumothorax Impression: No acute disease CT/MRI/US Diagnostic Results CT/MRI/US Diagnostic Results : Imaging Test Ordered: Head Impression No intracranial pathology Last Vital Signs Date Time Temp Pulse Resp B/P (MAP) Pulse Ox O2 Delivery O2 Flow Rate FiO2 02/16/20 07:15 97.3 80 18 125/80 99 Room Air Status: improved Disposition: HOME, SELF-CARE Condition: Improved Scripts Famotidine* (Pepcid 20mg tablet*) 20 Mg Tablet 20 MG ORAL DAILY, #20 TAB 0 Refills Prov: Kalpesh Patterson MD 02/16/20 Ibuprofen* (MOTRIN*) 600 Mg Tablet 600 MG ORAL Q6H PRN for FOR PAIN, #16 TAB 0 Refills Prov: Kalpesh Patterson MD 02/16/20 Lidocaine Patch* (Lidoderm Patch*) 1 Each Adh..patch 1 PATCH TOPIC DAILY, #7 PATCH 0 Refills Patch(es) may remain in place for up to 12 hours in any 24-hour period. Prov: Kalpesh Patterson MD 02/16/20 Hydrocodone Bit/Acetaminophen 5-325* (NORCO 5-325 TABLET*) 1 Each Tablet 1 TAB ORAL Q6H PRN for FOR PAIN, #10 TAB 0 Refills Prov: Kalpesh Patterson MD 02/16/20 Kalpesh Patterson MD Feb 16, 2020 03:57
[2020-02-16 04:00] VITALS: BP 133/81
[2020-02-16] MEDS ORDERED: Ketorolac 30mg Inj IV ONE (04:00)
--- NOTE | 2020-02-16 04:00 | NUR ---
ED Nurse Note: Patient walked into ED for c/o L arm tingling/numbness since 2200 last night. Patient states over the past few weeks he has had multiple episodes of the arm tingling/numbness. He denies any chest pain. He is aaox4, breathing is normal and unlabored. Connected to administrative library assistant. EKG bedside.
[2020-02-16 04:26] LABS: ANION GAP 7 mmol/L (5-15); BLOOD UREA NITROGEN 13 mg/dL (7-18); CALCIUM 8.4 MG/DL (8.5-10.1); CARBON DIOXIDE 27 MMOL/L (21-32); CHLORIDE 104 MMOL/L (98-107); CREATININE 1.1 MG/DL (0.55-1.30); POTASSIUM 3.4 MMOL/L (3.5-5.1); SODIUM 138 MMOL/L (136-145)
[2020-02-16 04:27] LABS: INR 0.9 (0.9-1.1)
[2020-02-16 04:31] LABS: BASOPHILS % (AUTO) 1.4 % (0.0-2.0); EOSINOPHILS % (AUTO) 4.6 % (0.0-3.0); HEMATOCRIT 47.8 % (42.0-52.0); HEMOGLOBIN 16.7 G/DL (14.2-18.0); LYMPHOCYTES % (AUTO) 51.3 % (20.0-45.0); MEAN CORPUSCULAR VOLUME 92 FL (80-99); MONOCYTES % (AUTO) 5.9 % (1.0-10.0); NEUTROPHILS % (AUTO) 36.8 % (45.0-75.0); PLATELET COUNT 216 K/UL (150-450); RED BLOOD COUNT 5.22 M/UL (4.70-6.10); RED CELL DISTRIBUTION WIDTH 12.3 % (11.6-14.8); WHITE BLOOD COUNT 9.8 K/UL (4.8-10.8)
[2020-02-16 04:37] LABS: ALANINE AMINOTRANSFERASE 33 U/L (12-78); ALBUMIN 3.8 G/DL (3.4-5.0); ALKALINE PHOSPHATASE 64 U/L (46-116); ASPARTATE AMINO TRANSFERASE 22 U/L (15-37); BILIRUBIN,TOTAL 0.4 MG/DL (0.2-1.0); CREATINE KINASE 204 U/L (26-308)
[2020-02-16] MEDS ORDERED: Morphine Sulfate 4mg/ml Inj (IV USE ONLY) IVP ONE (05:45)
--- NOTE | 2020-02-16 06:00 | NUR ---
ED Nurse Note: Pt taken to CT.
--- NOTE | 2020-02-16 06:35 | NUR ---
ED Nurse Note: Patient returned from CT in stable condition.
[2020-02-16 06:59] LABS: APPEARANCE,URINE CLEAR; BILIRUBIN, URINE NEGATIVE (NEGATIVE); GLUCOSE, URINE (UA) NEGATIVE (NEGATIVE); KETONES,URINE NEGATIVE (NEGATIVE); LEUKOCYTE ESTERASE ,URINE NEGATIVE (NEGATIVE); NITRITE,URINE NEGATIVE (NEGATIVE); PH,URINE 5 (4.5-8.0); PROTEIN,URINE 1+ (NEGATIVE); UROBILINOGEN,URINE NORMAL MG/DL (0.0-1.0)
[2020-02-16] MEDS ORDERED: LIDODERM700 M1 TOPIC (07:00)
[2020-02-16] MEDS ORDERED: FAMOTIDINE20 MG ORAL (07:00)
[2020-02-16] MEDS ORDERED: NORCO 5-325 TA1 EAC1 ORAL (07:00)
[2020-02-16] MEDS ORDERED: IBUPROFEN600 M1 ORAL (07:00)
[2020-02-16 07:15] VITALS: BP 125/80
[2020-02-16 07:17] LABS: COLOR,URINE YELLOW
--- NOTE | 2020-02-16 08:09 | Diagnostic Imaging Report ---
EXAM: CT Head Without Intravenous Contrast CLINICAL HISTORY: WEAK TECHNIQUE: Axial computed tomography images of the head/brain without intravenous contrast. CTDI is 53.40 mGy and DLP is 1098.90 mGy-cm. One or more of the following dose reduction techniques were used: automated exposure control, adjustment of the mA and/or kV according to patient size, use of iterative reconstruction technique. COMPARISON: No relevant prior studies available. FINDINGS: No acute intracranial hemorrhage. No midline shift or mass effect. The territorial bermudez-white matter differentiation is maintained throughout. The ventricles and sulci are commensurate with age. The visualized orbits appear grossly unremarkable. The calvarium is intact. The visualized paranasal sinuses and mastoid air cells are grossly clear. IMPRESSION: No acute intracranial hemorrhage, midline shift, or mass effect. Images degraded by mild motion artifact.
--- NOTE | 2020-02-16 21:02 | Diagnostic Imaging Report ---
Indication: Shortness of breath Technique: One view of the chest Comparison: 09/13/2019 Findings: Lungs and pleural spaces are clear. Heart size is normal. No significant change Impression: No acute process
== END 2020-02-16 07:15 | disposition home or self-care (01) ==
LOC: EMR 03:57
DX: M79.602 Pain in left arm (principal); F17.200 Nicotine dependence, unspecified, uncomplicated
CPT/HCPCS: 36415; 70450; 71045; 80053; 80307; 81003; 82550; 83880; 84484; 85025; 85610; 85730; 93005; 96374; 96375; J1885; J2270; J2405; Z7502; 99284

== ENCOUNTER 2020-05-07 23:48 | Emergency (ER) | payer OTHER ==
[~2020-05-07] VITALS: Ht 160 cm; Wt 83.9 kg
--- NOTE | 2020-05-08 00:14 | Emergency Room Report ---
History of Present Illness General Chief Complaint: Dizziness Source: Patient Present Illness HPI Patient is a 44-year-old male presents for increased epigastric pain. Reports having feeling of food may be stuck in that area. Associated dizziness.Reports having longstanding history of similar epigastric pain in the past. Did not improve with antacids. States he had been pending referral to specialist due to recurrent pain in that area. Reports having worse ringing in the ears as well as spinning sensation. Allergies: Coded Allergies: No Known Allergies (Unverified , 09/17/13) COVID-19 Screening Contact w/high risk pt: No Recent Travel to affected area: No Experienced COVID-19 symptoms?: No COVID-19 Testing performed CONVERTING TECHNICIAN: Yes COVID-19 Screening: Positive COVID-19 COVID-19 Testing Source: nasal Patient History Past Medical History: see triage record Reviewed Nursing Documentation: PMH: Agreed; PSxH: Agreed Review of Systems All Other Systems: negative except mentioned in HPI Physical Exam Vital Signs Date Time Temp Pulse Resp B/P (MAP) Pulse Ox O2 Delivery O2 Flow Rate FiO2 05/07/20 23:57 98.1 81 18 138/96 (110) 96 Room Air Sp02 EP Interpretation: reviewed, normal General Appearance: normal inspection, well appearing, no apparent distress, alert, GCS 15 Head: atraumatic ENT: normal ENT inspection, hearing grossly normal, normal voice Neck: normal inspection, full range of motion, supple, no bony tend Respiratory: normal inspection, lungs clear, normal breath sounds, no respiratory distress, no retraction, no wheezing Cardiovascular #1: regular rate, rhythm, no edema Gastrointestinal: normal inspection, normal bowel sounds, non tender, soft, no guarding, no hernia Genitourinary: no CVA tenderness Musculoskeletal: normal inspection, back normal, normal range of motion Neurologic: alert, motor strength/tone normal, frame catcher III-XII nml as tested, oriented x3, responsive, speech normal, normal inspection Psychiatric: normal inspection, judgement/insight normal, mood/affect normal Medical Decision Making Diagnostic Impression: Primary Impression: Abdominal pain Additional Impressions: Achalasia Lung nodule Vertigo ER Course Presents for dizziness and epigastric pain. Differential diagnosis included but was not limited to gastritis, achalasia, foreign body, myocardial infarction among others. Because of complexity of patient's case laboratory tests and imaging studies were ordered. Patient's epigastric pain apparently is longstanding.Patient had previous CT imaging performed at this hospital approximately 7 months ago which was unremarkable.Patient had previous imaging studies with negative ultrasound as well.EKG interpreted by me showed normal sinus rhythm with a rate of [address] or T wave changes noted. EKG. Unchanged from previous EKG from 2 months prior. Patient symptoms appear to be related to chronic achalasia. Patient dizziness appears to be related to recent problem with his left ear which he states has been having ringing sensation. Laboratory testing showed no evidence of hyponatremia and troponin was negative. Patient was advised to follow-up with his primary care physician for recheck. He is advised to return if any worsening or focal weakness was noted. At the time of discharge patient was able to ambulate without assistance and does not appear to have any evidence of ataxia. This medical record is generated with [employer] grout worker software. There may be some grout worker discrepancies related to use of this software EKG Diagnostic Results Rate: normal Rhythm: NSR ST Segments: no acute changes Last Vital Signs Date Time Temp Pulse Resp B/P (MAP) Pulse Ox O2 Delivery O2 Flow Rate FiO2 05/07/20 23:57 98.1 81 18 138/96 (110) 96 Room Air Status: improved Disposition: HOME, SELF-CARE Condition: Stable Scripts Dicyclomine Hcl* (DICYCLOMINE HCL*) 10 Mg Capsule 10 MG ORAL QID, #20 CAP Prov: Sabino Marin MD 05/08/20 Meclizine Hcl* (MECLIZINE*) 25 Mg Tablet 25 MG ORAL THREE TIMES A DAY, #30 TAB Prov: Sabino Marin MD 05/08/20 Sabino Marin MD May 08, 2020 00:14
[2020-05-08] MEDS ORDERED: Meclizine 25mg tab ORAL ONE (00:30)
--- NOTE | 2020-05-08 00:30 | NUR ---
ED Nurse Note: Blood and urine sent to lab
[2020-05-08 00:34] VITALS: BP 138/96
--- NOTE | 2020-05-08 00:34 | NUR ---
Pt c/o RUQ abdominal pain. Pt denies nausea/vomiting. Pt ambulated into ed and is AAO x4.
[2020-05-08 00:51] LABS: APPEARANCE,URINE CLEAR; BASOPHILS % (AUTO) 1.2 % (0.0-2.0); BILIRUBIN, URINE NEGATIVE (NEGATIVE); COLOR,URINE PALE YELLOW; EOSINOPHILS % (AUTO) 5.2 % (0.0-3.0); GLUCOSE, URINE (UA) NEGATIVE (NEGATIVE); HEMATOCRIT 46.1 % (42.0-52.0); HEMOGLOBIN 16.3 G/DL (14.2-18.0); KETONES,URINE NEGATIVE (NEGATIVE); LEUKOCYTE ESTERASE ,URINE NEGATIVE (NEGATIVE); LYMPHOCYTES % (AUTO) 50.6 % (20.0-45.0); MEAN CORPUSCULAR VOLUME 87 FL (80-99); MONOCYTES % (AUTO) 5.6 % (1.0-10.0); NEUTROPHILS % (AUTO) 37.4 % (45.0-75.0); NITRITE,URINE NEGATIVE (NEGATIVE); PH,URINE 8 (4.5-8.0); PLATELET COUNT 217 K/UL (150-450); PROTEIN,URINE NEGATIVE (NEGATIVE); RED BLOOD COUNT 5.33 M/UL (4.70-6.10); RED CELL DISTRIBUTION WIDTH 12.1 % (11.6-14.8); UROBILINOGEN,URINE NORMAL MG/DL (0.0-1.0); WHITE BLOOD COUNT 9.9 K/UL (4.8-10.8)
[2020-05-08 01:11] LABS: ANION GAP 5 mmol/L (5-15); BLOOD UREA NITROGEN 15 mg/dL (7-18); CALCIUM 9.2 MG/DL (8.5-10.1); CARBON DIOXIDE 30 MMOL/L (21-32); CHLORIDE 105 MMOL/L (98-107); POTASSIUM 3.7 MMOL/L (3.5-5.1); SODIUM 140 MMOL/L (136-145)
[2020-05-08 01:15] LABS: ALANINE AMINOTRANSFERASE 42 U/L (12-78); ALBUMIN 3.8 G/DL (3.4-5.0); ALBUMIN/GLOBULIN RATIO 0.9 (1.0-2.7); ALKALINE PHOSPHATASE 77 U/L (46-116); ASPARTATE AMINO TRANSFERASE 28 U/L (15-37); BILIRUBIN,TOTAL 0.4 MG/DL (0.2-1.0)
[2020-05-08] MEDS ORDERED: DICYCLOMINE HCL10 MG ORAL (02:19)
[2020-05-08] MEDS ORDERED: MECLIZINE HCL25 MG ORAL (02:19)
--- NOTE | 2020-05-08 02:26 | NUR ---
ED Nurse Note: Pt is resting, no new needs identified at this time.
--- NOTE | 2020-05-08 02:46 | NUR ---
ED Nurse Note: Pt cleared by health care Provider for discharge. D/C instructions/prescription was given and explained to pt, and pt verbalized understanding of teachings. All medical deviecs such as ID band removed. Pt is AAO x4, ambulatory and left with all personal belongings.
[2020-05-08 02:48] VITALS: BP 138/96
--- NOTE | 2020-05-11 14:12 | Cardiology Report ---
APPROVED REPORT EKG Measurement Heart [id number] <Conclusion> Normal sinus rhythm with sinus arrhythmia Normal ECG
== END 2020-05-08 02:50 | disposition home or self-care (01) ==
LOC: EMR 05-08 00:13
DX: R10.13 Epigastric pain (principal); K22.0 Achalasia of cardia; R91.1 Solitary pulmonary nodule; R42 Dizziness and giddiness
CPT/HCPCS: 36415; 80053; 81003; 83690; 84484; 85025; 93005; 96374; 96375; J2405; S0028; Z7502; 99284

== ENCOUNTER 2020-06-05 11:34 | Emergency (ER) | payer OTHER ==
[~2020-06-05] VITALS: Ht 162.6 cm; Wt 81.6 kg
[~2020-06-05 11:34] MED LIST changes: +DICYCLOMINE HCL10 MG ORAL; +MECLIZINE HCL25 MG ORAL
[2020-06-05 12:03] VITALS: BP 135/77
--- NOTE | 2020-06-05 12:03 | NUR ---
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 pt states minor bleeding at time of injury, with bleeding now controlled. pt tetanus not UTD. wound care initated in triage. pt AAO4 states history of hyperlipidema.
--- NOTE | 2020-06-05 12:11 | Emergency Room Report ---
History of Present Illness General Chief Complaint: Upper Extremity Injury Source: Patient Present Illness HPI Disclaimer: Please note that this report is being documented using [employer] technology. This can lead to erroneous entry secondary to incorrect interpretation by the dictating instrument. HPI: 44-year-old [id number] male presents for laceration to the left hand. Patient was changing a battery inside his car when he slipped cutting his hand on something inside the engine compartment. Ports a small laceration over the back of the hand. Bleeding controlled with pressure. He cannot recall his last tetanus. He has full range of motion of the hand and wrist. Denies any crushing or direct trauma injuries otherwise. No other injury sustained. PMH: Reviewed PSH: Reviewed Allergies: Reviewed Social Hx: Reviewed Allergies: Coded Allergies: No Known Allergies (Unverified , 09/17/13) COVID-19 Screening Contact w/high risk pt: No Recent Travel to affected area: No Experienced COVID-19 symptoms?: No COVID-19 Testing performed PHYSICAL LABORATORY ASSISTANT: No COVID-19 Screening: Negative COVID-19 Review of Systems All Other Systems: negative except mentioned in HPI Physical Exam Vital Signs Date Time Temp Pulse Resp B/P (MAP) Pulse Ox O2 Delivery O2 Flow Rate FiO2 06/05/20 11:58 98.4 108 18 135/77 (96) 100 Room Air General: Awake and alert, no acute distress HEENT: NC/AT. EOMI. Resp: Normal work of breathing Skin: There is a 3 cm superficial linear laceration over the dorsum of the left hand. MSK: Normal tone and bulk. Moving all extremities. No obvious deformity. Full range of motion on flexion extension of all digits. Full range of motion at the left wrist. Neuro: Awake and alert. Mentating appropriately Procedures Laceration/Wound Repair Laceration/Wound Repair : Consent: Verbal Wound Location: upper extremity Wound's Depth, Shape: superficial, linear Wound Length (cm): 3 Wound Explored: clean Irrigated w/ Saline (ccs): 1000 Betadine Prep?: Yes Anesthesia: 1% Lidocaine Volume Anesthetic (ccs): 5 Wound Debrided: None Wound Repaired With: sutures Suture Size/Type: 4:0, proline Number of Sutures: 5 Layer Closure?: No Sterile Dressing Applied?: Yes Patient Tolerated: Well Complications: None Medical Decision Making Diagnostic Impression: Primary Impression: Hand laceration ER Course 44-year-old male presents with superficial laceration to the dorsum of the left hand. No debris noted. Wound was irrigated and scrubbed under pressure. Betadine prep for antiseptic and then repaired well approximated with 5 simple interrupted 4-0 Prolene sutures. There is no evidence of tendon involvement. Tetanus was updated. Patient will be discharged to follow-up with PMD suture removal. Instructed to return new or worsening symptoms. He understands and agrees with this treatment plan. Last Vital Signs Date Time Temp Pulse Resp B/P (MAP) Pulse Ox O2 Delivery O2 Flow Rate FiO2 06/05/20 12:03 98.4 18 135/77 100 Room Air 06/05/20 11:58 108 Disposition: HOME, SELF-CARE Condition: Stable Referrals: [facility] Patient Instructions: Sutured Wound Care Additional Instructions: Return in 5 to 7 days for suture removal. Keep clean and dry until then. Calixto Ortiz MD Jun 05, 2020 12:11
[2020-06-05] MEDS ORDERED: Tetanus/Diptheria/Pertussis IM ONE (12:15)
== END 2020-06-05 12:48 | disposition home or self-care (01) ==
LOC: EMR 12:41
DX: S61.412A Laceration without foreign body of left hand, initial encounter (principal); Z23 Encounter for immunization; W45.8XXA Other foreign body or object entering through skin, initial encounter; Y92.9 Unspecified place or not applicable
CPT/HCPCS: 12002; 90471; 90715; Z7502; 99282